=== PATIENT | male | born 1945 | race Caucasian/White ===

== ENCOUNTER 2018-06-24 21:27 | Inpatient (IN) | payer MEDICARE ==
[~2018-06-24 21:27] MED LIST: ISOVUE-370 76%-LOCM 1 ML ONE
[2018-06-24 21:43] LABS: #Lymphocytes 1.2 thou/uL (1.20-3.40); #Monocytes 1.1 thou/uL (0.11-0.59); #Neutrophils 16.1 thou/uL (1.40-6.50); %Basophils 0.1 % (0.0-1.0); %Eosinophils 0.2 % (0.0-10.0); %Lymphocytes 6.5 % (21.0-51.0); %Neutrophils 87.2 % (42.0-75.0); Hemoglobin 17.2 g/dL (14.0-18.0); Mean Corpuscular HGB CONC 33.1 g/dL (32.0-36.0); Mean Corpuscular Hemoglobin 36.1 pg (27.0-31.0); Mean Platelet Volume 8.9 fL (7.4-10.4); Platelet Count 139 thou/uL (130-400); Red Blood Cell (RBC) Count 4.76 mill/uL (4.70-6.10); White Blood Cell (WBC) Count 18.5 thou/uL (4.8-10.8)
[2018-06-24 21:50] LABS: INR-International Normal Ratio 1.2; PTT 31.2 SEC (22.9-36.1); Prothrombin Time 15.2 SEC (12.0-14.7)
[2018-06-24 21:52] LABS: Bilirubin Moderate (Negative); Blood, Urine Large (Negative); Clarity CLOUDY (Clear); Glucose, Urine (Dipstick) Negative (Negative); Leukocyte Small (Negative); Nitrite Positive (Negative); Protein, Urine (Dipstick) 100 mg/dL (Neg-Trace); Specific Gravity, Urine 1.026 (1.002-1.036); pH, Urine 5.5 (5.0-9.0)
[2018-06-24 21:54] LABS: Bacteria/HPF None Seen HPF (None Seen); RBC/HPF 0-3 HPF (0-3)
[2018-06-24 21:54] LABS: ALT (SGPT) 65 U/L (8-55); AST (SGOT) 185 U/L (5-34); Alcohol Less than 10 mg/dL (Less than 10); Alkaline Phosphatase 79 U/L (40-150); Anion Gap 18 mmol/L (10-20); BUN (Urea Nitrogen) 35 mg/dL (8.4-25.7); Bilirubin, Total 1.6 mg/dL (0.2-1.2); CK (CPK) 3836 U/L (30-200); Calc. Creatinine Clearance 0 mL/min (70-130); Calcium 9.5 mg/dL (7.8-10.44); Carbon Dioxide 27 mmol/L (23-31); Chloride 101 mmol/L (98-107); Estimated GFR-MDRD 38; Globulin 4.1 g/dL (2.4-3.5); Glucose 191 mg/dL (83-110); Lipase 10 U/L (8-78); Potassium 5.2 mmol/L (3.5-5.1); Protein, Total 8.1 g/dL (5.8-8.1); Sodium 141 mmol/L (136-145)
[2018-06-24 21:56] LABS: Pathc Cast-AUWi Flag 22.82 (0-2.49)
[2018-06-24 22:03] LABS: Hyaline Casts/LPF >50 HYALINE CAST LPF (0-3 Hyaline)
[2018-06-24] MEDS ORDERED: Fentanyl 100 MCG/2 ML VIAL ONE ×3 (22:04→22:43)
--- NOTE | 2018-06-24 22:09 | RAD ---
ONE VIEW CHEST 06/24/18 HISTORY: GI bleed. COMPARISON: 12/01/09. FINDINGS: Endotracheal tube terminates at the level of the clavicles. Nasogastric tube is only partially identi fied. Dedicated abdomen radiograph is recommended to assess the termination of a nasogastric tube. No rmal cardiac silhouette. Pulmonary vessels and hilum are normal. Costophrenic angles are clear. No co nsolidation or mass. No pneumothorax or osseous abnormalities. IMPRESSION: Normal cardiac silhouette for supine projection. Nasogastric tube as above. Dedicated abdomen radiogr aph can be performed. No pneumothorax on this supine projection. POS: [facility]
[2018-06-24] MEDS ORDERED: fentaNYL Citrate/PF 2,000 MCG in Sodium Chloride 0.9% 60 ML IV SCH (22:17)
--- NOTE | 2018-06-24 22:19 | CT ---
CT CERVICAL SPINE WITHOUT CONTRAST 06/24/18 HISTORY: Level I trauma. COMPARISON: 11/04/09. TECHNIQUE: CT cervical spine is performed without contrast. Reformatted images are submitted. Intracranial hemorrhage is noted. Refer to separate head CT report for further details. No craniocervical dissociation. Lateral masses of C1 and C2 as well as the facets have appropriate ar ticulation. Intact odontoid process. Stable fusion of the C5-C6 disc space. No malalignment. No preve rtebral soft tissue swelling. No epidural hematoma. Varying degrees of central canal stenosis and davide ral foraminal narrowing on the basis of degenerative change. Cervical spine vertebral body height is maintained. No cervical spine fracture. Upper mediastinum is unremarkable. Fibrotic changes in the visualized lung apices. IMPRESSION: No fracture. POS: [facility]
--- NOTE | 2018-06-24 22:26 | CT ---
HEAD CT WITHOUT CONTRAST: 06/24/18 HISTORY: Level I trauma. Depressed skull fracture on the right side. GI bleed. Unknown mechanism of injury. COMPARISON: 11/07/15. TECHNIQUE: Noncontrast head CT is performed from skull base to skull vertex. FINDINGS: There is adequate aeration of the mastoid air cells. There is right maxillary sinus mucosal disease. There is a right supraorbital/frontal, periorbital hematoma. Mild right sided exophthalmos cannot be excluded. Both ocular lenses are appropriately located. Intact calvarium. There is no evidence of a right calvarial fracture. There is a small amount of subarachnoid blood along the right temporal convexities. Small foci of int raparenchymal blood along the medial right frontal lobe is suspected. Small amounts of subarachnoid b lood may be present in the sulci along the right frontotemporal region. There is moderate amount of b lood in the occipital horn of both lateral ventricles. There is also increased density along the left thalamus suggesting a left thalamic hematoma/hemorrhage. The left thalamic component appears to be a pproximately 3.5 x 1.9 cm. There is no midline shift. Basilar cisterns appear to still be patent. Age appropriate atrophy. Chron ic small vessel ischemic change of the white matter identified. Subtle hyperdensity involving the medial right frontal lobe along the falx is nonspecific. IMPRESSION: 1. Subarachnoid and intraventricular hemorrhage. 2. Right periorbital and scalp hematoma. 3. Left thalamic hemorrhage/hematoma. POS: [facility]
--- NOTE | 2018-06-24 22:32 | CT ---
MAXILLOFACIAL CT WITHOUT CONTRAST 06/24/18 HISTORY: Trauma. COMPARISON: None. TECHNIQUE: Maxillofacial CT is performed without contrast. Reformatted images are submitted. There is a right supraorbital, periorbital hematoma. Right ocular lens is appropriately located. Both globes are intact. Retrobulbar fat is preserved. Symmetric attenuation of the optic nerves and ocula r rectus muscles. Mild right sided exophthalmos is noted. Sagittal reformatted images demonstrate davina ropriate alignment of the mandibular condyles. There is evidence of periodontal disease with periapic al lucencies and dental caries. Maxilla is unremarkable. Coronal reformatted images demonstrate soft tissue attenuation of the right osteomeatal complex. Left osteomeatal complex is patent. The osseous margins of the sinuses and orbits are maintained. Zygomat ic arches are intact. Pterygoid plates are intact. There is evidence of an endotracheal and nasogastric tube limiting evaluation of the oral cavity. Sym metric attenuation of the visualized parotid and submandibular glands. Atherosclerosis of the right c arotid artery is noted. There is mild mucosal disease involving bilateral ethmoid air cells. Small air fluid level in the rig ht maxillary sinus. Adequate mastoid air cell aeration. IMPRESSION: 1. No evidence of a maxillofacial fracture. 2. Extensive periodontal disease. 3. Right periorbital/supraorbital hematoma. Mild right sided exophthalmos. Results of the head CT, cervical spine CT, face CT discussed with Dr. Pennington, at 10:08 p. m. Code CR POS: P[facility]
[2018-06-24 22:40] LABS: Base Excess (BEa) 0.9 mEq/L (-2.0 to +3.0); CO2 Tension 43.2 mmHg (35.0-45.0)
[2018-06-24 22:41] LABS: Analyzer IN Cardio ER; Calcium, Ionized 1.1 mmol/L (1.12-1.30); Carboxyhemoglobin (COHb) 0.2 gm% (0.0-3.0); Hemoglobin (Hb) 15.4 g/dL (14.0-18.0); Potassium - ABG Lab 3.3 mmol/L (3.70-5.30)
[2018-06-24 22:42] LABS: Puncture Site RRA
--- NOTE | 2018-06-24 23:03 | CT ---
CT CHEST WITH CONTRAST CT ABDOMEN WITH CONTRAST CT PELVIS WITH CONTRAST LIMITED CT LUMBOSACRAL SPINE WITH CONTRAST LIMITED CT THORACIC SPINE WITH CONTRAST 06/24/18 HISTORY: Skull fracture. Found down. COMPARISON: None. FINDINGS: There are numerous air space opacities in the right upper lobe concerning for multifocal infection. P atient is intubated. Enteric tube is in place. Tip of the gastric body. No significant mediastinal adenopathy. There are multiple healing right sided rib fractures. Motion artifact limits evaluation for lower rib fractures. The sternum and manubrium are intact. There is a compression fracture at L1 with retropulsion approximately 2 mm. This is not definitively acute. The clavicles are intact. The visualized portion of the scapula are intact. Osseous pelvis is intact. Old left humeral neck fracture. The liver contour is nodular suggesting cirrhosis. Spleen is unremarkable as well as the pancreas. Th ere is cholelithiasis. Soft tissue contusion is present over the right thigh. Underlying right femur is intact. The osseous pelvis is intact. No lumbar spine transverse process fracture. Adrenal glands are unremarkable. No hy dronephrosis. No dilated loops of large or small bowel. There appears to be a soft tissue contusion o jordan the left anterior abdominal wall. There is a small bowel containing ventral hernia without eviden ce of obstruction. Moderate diverticular disease of the sigmoid colon without active current inflammation. The appendix is visualized and is normal. No free intraperitoneal gas or fluid. IMPRESSION: 1. L1 compression fracture with retropulsion does not appear to be acute. 2. Old right sided rib fractures. 3. Old left humeral neck fracture. 4. Right upper lobe air space opacity concerning for multifocal infection. 5. Nodular contour of the liver suggesting cirrhosis. 6. Small bowel containing ventral/umbilical hernia without evidence obstruction. 7. Soft tissue contusions left anterior abdominal wall and right lateral thigh. Dr. Gorge Unger, 10:12 p.m. POS: [facility]
[2018-06-24] MEDS ORDERED: Insulin Regular 300 UNITS/3 ML VIAL ONE (23:12)
[2018-06-24] MEDS ORDERED: Calcium Chloride 1 GM/10 ML Abboject SYRINGE ONE (23:12)
[2018-06-24] MEDS ORDERED: Dextrose 50% Abboject 50 ML SYRINGE ONE (23:12)
[2018-06-24] MEDS ORDERED: Azithromycin 500 MG VIAL ONE (23:16)
[2018-06-24] MEDS ORDERED: Magnesium Sulfate 2 GM in Sodium Chloride 0.9% 100 ML IVPB SCH (23:30)
[2018-06-24] MEDS ORDERED: Promethazine HCl 25 MG/ML VIAL IM PRN (23:50)
[2018-06-24] MEDS ORDERED: Ondansetron HCl/PF 4 MG/2 ML Vial IVP PRN (23:50)
[2018-06-24] MEDS ORDERED: Promethazine 25 MG TAB PO PRN (23:50)
[2018-06-24] MEDS ORDERED: Zolpidem Tartrate 5 MG TAB PO PRN (23:50)
[2018-06-24] MEDS ORDERED: HYDROcodone/Acetaminophen 7.5/325 mg Tablet PO PRN ×2 (23:50)
[2018-06-24] MEDS ORDERED: Mag-Al 1200 mg/1200 mg/30 ML UDCUP PO PRN (23:50)
[2018-06-24] MEDS ORDERED: diphenhydrAMINE 50 MG CAP PO PRN (23:50)
[2018-06-24] MEDS ORDERED: Labetalol HCl 100 MG/20 ML VIAL SLOW IVP PRN (23:50)
[2018-06-24] MEDS ORDERED: Docusate 100 MG CAP PO PRN (23:50)
[2018-06-24] MEDS ORDERED: Milk Of Magnesia 30 ML UDCUP PO PRN (23:50)
[2018-06-24] MEDS ORDERED: Bisacodyl 10 MG SUPP PR PRN (23:50)
[2018-06-25] MEDS ORDERED: Norepinephrine 8 MG/0.9% NS 250 ML ONE (00:19)
[2018-06-25] MEDS ORDERED: cefTRIAXone\\ROCEPHIN 2 GM VIAL ONE (00:19)
--- NOTE | 2018-06-25 01:32 | HP ---
HISTORY OF PRESENT ILLNESS: This is a 73-year-old male who was found down/ unresponsive at his home by his family this evening. EMS was called and he was brought to our emergency room. The last normal for this patient was Thursday by family. They state that he more or less takes care of himself. He lives on his own. He had an ischemic stroke approximately 2 years ago, which left him with some deficits, but he was able to walk slow but unassisted and take care of himself. Family and EMS do not know how long the patient was down for. The patient has a depressed skull fracture on the right side. He was found covered in dried blood with multiple bruises all over his body. The patient was intubated en route. I am seeing Mr. Farfan in the ER. He is intubated. He has a right swollen frontotemporal area surrounding his eye. The swelling prevents the right eye from opening. The patient is a little bit responsive. He was able to move all 4 extremities with encouragement. I believe that he was responding to commands, squeezing my fingers with the left hand, and moving the other extremities. He is able to withdraw all 4 extremities, even the right leg. Family states that the right side was always less responsive following his stroke 2 years ago. REVIEW OF SYSTEMS: Unable to obtain review of systems. PAST MEDICAL HISTORY: Includes a stroke in 2015, diabetes type 2, hypertension , pulmonary disease, COPD. Medical history is obtained from family and medical records. PAST SURGICAL HISTORY: Left arm skin graft. Medical history obtained from chart. SOCIAL HISTORY: Social history is obtained from family and medical chart. The patient denies alcohol use. Denies drug use. The patient is a former smoker, quit in 2014 following his ischemic stroke. The patient used to smoke 2 packs of cigarettes daily. The patient currently lives in his home alone. MEDICATIONS: Aspirin 325 mg, lisinopril 20 mg, Levemir 26 units, metoprolol 25 b.i.d., atorvastatin 40 b.i.d. ALLERGIES: No known drug allergies. PHYSICAL EXAMINATION: VITAL SIGNS: Blood pressure 91/67, heart rate 99, respiratory rate 14, temperature 97.2, O2 sats 99% on ventilator. Pain, unable to obtain. CONSTITUTIONAL: The patient is tachycardic. Blood pressure is hypotensive. NEUROLOGIC: The patient appears toxic, poorly groomed, foul odor, and is on a ventilator. The patient is a little responsive. HEAD: The patient has this depression on right side of scalp. Right-sided facial swelling. Dried blood on his face. EYES: Eye exam is difficult. Right eye is swollen and shut. Left pupil is 2 mm and sluggish reactivity. The patient does have control of left eye to some extent. Extraocular movements are intact on the left. RESPIRATORY: The patient is currently intubated. CARDIOVASCULAR: Tachycardic. Normal heart sounds. NEUROLOGIC: Butler Coma Scale: The patient is unable to open his eye, 1; the patient is nonverbal, 1; the patient is able to respond to commands with motor activity, 6. The patient will respond to some questions, was able to squeeze lightly with left hand, did wiggle and move both lower extremities and the right extremity on command, however slow. The patient is withdrawing from stimuli in all 4 extremities. IMAGING: CT brain shows a subarachnoid and intraventricular hemorrhage, right periorbital and scalp hematoma, and left thalamic hemorrhage/hematoma. CT abdomen: There appears to be an old L1 compression fracture, old rib fractures , and old left humeral neck fracture. There is a right lobe opacity concerning of pneumonia. ASSESSMENT AND PLAN: From a neurosurgical standpoint, the patient has subarachnoid hemorrhage and bilateral ventricular hemorrhages, which at this time is nonsurgical. We will monitor pt.get a repeat CT scan in the morning. We will do neuro checks every 2 hours. Maintain blood pressure systolic below 160. We have consulted the Hospitalist Department to treat his other medical issues including pneumonia and hypotension. This is a survivable bleed; however , it is likely that this patient will have some significant deficits upon recovery. ANTHONY
[2018-06-25] MEDS ORDERED: Norepinephrine 8 MG/250 ML BAG IVPB PRN (01:55)
[2018-06-25] MEDS ORDERED: Propofol BOLUS 1,000 MG/100 ML VIAL IV PRN (01:56)
[2018-06-25] MEDS ORDERED: Fentanyl BOLUS 250 ML IVPB PRN (01:56)
[2018-06-25] MEDS ORDERED: Lorazepam 2 MG/ML VIAL SLOW IVP PRN (01:56)
[2018-06-25] MEDS ORDERED: Propofol 1,000 MG/100 ML VIAL IV PRN (01:56)
[2018-06-25] MEDS ORDERED: DISCONTINUE PREVIOUS NARCOTIC PAIN MEDICATIONS AND BENZODIAZEPINES FS SCH (01:56)
[2018-06-25 02:31] LABS: Lactic Acid 2.3 mmol/L (0.5-2.2)
[2018-06-25] MEDS: Sodium Chloride 0.9% 1,000 ML IV SCH ×2 (02:35→13:25)
[2018-06-25] MEDS: Diltiazem HCl 125 MG, Admixture Fee 1 EACH in Sodium Chloride 0.9% 100 ML IVPB SCH (03:13)
[2018-06-25 03:53] LABS: Anion Gap 14 mmol/L (10-20); BUN (Urea Nitrogen) 31 mg/dL (8.4-25.7); Calc. Creatinine Clearance 77 mL/min (70-130); Calcium 8.9 mg/dL (7.8-10.44); Carbon Dioxide 25 mmol/L (23-31); Chloride 109 mmol/L (98-107); Estimated GFR-MDRD 64; Glucose 152 mg/dL (83-110); Potassium 3.4 mmol/L (3.5-5.1); Sodium 145 mmol/L (136-145)
[2018-06-25] MEDS ORDERED: Dextrose 50% Abboject 50 ML SYRINGE SLOW IVP PRN (04:22)
[2018-06-25] MEDS ORDERED: Dextrose 5% in Water 1,000 ML IV PRN (04:22)
--- NOTE | 2018-06-25 04:43 | PDOC.EVN ---
Event Note - Event Note Event Note: consult # [id number]
[2018-06-25 05:40] LABS: Troponin I 9.477 ng/mL (< 0.028)
--- NOTE | 2018-06-25 07:38 | PRG ---
DATE OF SERVICE: 06/25/2018 Mr. Chace Farfan was found down in his home yesterday and brought to our emergency department. Last time he was known to be normal was Thursday of this week. A CT examination of the brain revealed intr acerebral hemorrhage, involving the posterior portion of the left thalamus. There is intraventricula r extension and there is some traumatic subarachnoid hemorrhage over the convexities and between the hemispheres. Mr. Farfan had a dense right hemiplegia and aphasia on admission. He was intubated and he has been treated for rhabdomyolysis and some orthopedic injuries in addition to the brain hemorrhage. This morning, a CT scan has been repeated and there is absolutely no change. Overnight, Mr. Farfan has been on pressors. His blood pressure is supported, but it is in the 90s. Currently, he is on a drip of fentanyl for sedation and pain control. On examination, Mr. Farfan opens the left eye to stimulus. He attempts to follow commands, but cannot interpret them accuratel y. He tries to mimic with his left hand. The right side is not moving at all. Mr. Farfan's neurological examination is as I predicted it would be this morning. It is unlikely t hat Mr. Farfan returns to normal neurological function after this. However, this hemorrhage is not going to be life threatening, but rather debilitating. He has already made it through the riskiest portion of the intracerebral hemorrhage, in my view. If this happened earlier in the week and the or an is essentially stable now, then we will start having to think about rehabilitation from his new ne urological deficits. He might require a PEG and trach to make it to a brain injury rehabilitation fa cility eventually. This will be discussed with the family later today. The likelihood of neurosurgical intervention is low.
[2018-06-25 07:46] LABS: Actual Bicarbonate (HCO3a) 24.9 mEq/L (22-28); Base Excess (BEa) -0.8 mEq/L (-2.0 to +3.0); CO2 Tension 44.8 mmHg (35.0-45.0); Hemoglobin (Hb) 15.2 g/dL (14.0-18.0); O2 Tension (PaO2) 97.7 mmHg (> 70.0); pH, Arterial 7.36 (7.35-7.45)
[2018-06-25 07:47] LABS: Calcium, Ionized 1.2 mmol/L (1.12-1.30); Carboxyhemoglobin (COHb) 1.1 gm% (0.0-3.0); Potassium - ABG Lab 3.7 mmol/L (3.70-5.30); Puncture Site RRA
--- NOTE | 2018-06-25 07:56 | CON ---
DATE OF CONSULTATION: 06/25/2018 PRIMARY CARE PHYSICIAN: Sonja Betancur M.D. REASON FOR CONSULTATION: Medical management. HISTORY OF PRESENT ILLNESS: This is a 73-year-old male with a prior history of ischemic stroke in 2014, type 2 diabetes, hypertension, COPD, who was found down and unresponsive at home by his family earlier in the evening. EMS was called. He is currently intubated and nonresponsive. His son is with him at bedside. The patient's last known normal was on Thursday at baseline, he takes care of himself with independence. At the time of my evaluation, the patient is currently unable to provide a history and so the entirety of this history is obtained from prior records. REVIEW OF SYSTEMS: Unable to obtain secondary to the above. PAST MEDICAL HISTORY: As per HPI. PAST SURGICAL HISTORY: Status post left arm skin graft. SOCIAL HISTORY: The patient has a prior history of tobacco and alcohol use for which he quit in 2014 after his ischemic stroke. He has a prior history of 2 packs per day. He has no illicit drug use. He has one son with him at bedside. He states that the patient has 3 children, all sons, who would together be his medical decision makers. The son at bedside does state that the patient used to have a prior living will signed. At this point in time, the patient would want aggressive treatment, but if he were to further decompensate and require compressions and shocks, patient's son feels that the patient would have wanted to be a DO NOT RESUSCITATE/ do not code. That being said, if there are any further procedures, surgical procedures or neurosurgical procedures that may benefit the patient, he would certainly want to undergo those procedures. HOME MEDICATIONS: Please see the EMR for full details. The patient's list currently appears to include nicotine 21 mg topical patch q.24 hours, multivitamin with minerals 1 tab p.o. daily, metoprolol tartrate 12.5 mg p.o. b.i.d., Levemir FlexPen 20 units subcu at bedtime, atorvastatin 40 mg p.o. at bedtime and aspirin 325 mg p.o. daily. ALLERGIES: Include TETANUS VACCINES, which cause hives. FAMILY HISTORY: Significant for multiple family members with diabetes and a father who of emphysema. PHYSICAL EXAMINATION: GENERAL: The patient is intubated currently, non-participatory. HEENT: The patient is currently in a C-collar. He has an ET tube in place. He does have some ecchymoses and erythema over the right side of his face. CARDIOVASCULAR: S1, S2. Pulses 2+ bilateral upper extremities. No pitting pedal edema. RESPIRATORY: Prominent ventilator sounds, bilateral lung roa. ABDOMEN: Positive bowel sounds and soft. MUSCULOSKELETAL: Noted areas of erythema along his right knee, right side and right head as described above. LABORATORY DATA AND IMAGING: WBC 18.5, hemoglobin 17.2, hematocrit 51.9, platelets 139. PT 15.2, INR 1.2, aPTT 31.2. ABG demonstrates a pH of 7.4, pCO2 of 43.2, pO2 of 428. Sodium 141, potassium 5.2, chloride of 101, bicarbonate of 27, BUN 35, creatinine 1.77, glucose 191. Lactic acid of 3.5, calcium 9.5, total bilirubin 1.5, AST 185, ALT 165, alkaline phosphatase 79. CK of 3836, total protein 8.1, albumin 4.0, lipase of 10. UA is significant for 100 of protein, 40 of ketones, large blood, positive nitrite, moderate bilirubin, small leukoesterase, 7-10 wbc's, 11-20 squamous epithelial cells, greater than 50 hyaline casts. Plasma alcohol is less than 10. On 06/24/2018, CT of the chest, abdomen, and pelvis. Impression: "L1 compression fracture with retropulsion does not appear to be acute. Old right-sided rib fractures. Old left humeral neck fracture. Right upper lobe airspace opacity concerning for multifocal infection. Nodular contour of the liver suggesting cirrhosis. Small bowel containing ventral/umbilical hernia without evidence of obstruction. Small vessel contusions, left anterior abdominal wall and left lateral thigh." On 06/24/2018, chest x-ray. Impression: "Normal cardiac silhouette for supine projection. Nasogastric tube as above. Dedicated abdomen radiograph can be performed. No pneumothorax in the supine projection. " On 06/24/2018, brain CT. Impression: "Subarachnoid and intraventricular hemorrhage. Right periorbital and scalp hematoma, left thalamic hemorrhage/ hematoma." On 06/24/2018, cervical spine CT. Impression: "No fracture." On 06/24/2018, facial bones CT. Impression: "No evidence of a maxillofacial fracture. Extensive periodontal disease. Right periorbital, supraorbital hematoma. Mild right-sided exophthalmos." ASSESSMENT AND PLAN: This is a 73-year-old male, who presented after being found down. 1. Neurological. Significant for multiple hematomas, including a subarachnoid hemorrhage as well. The patient is currently on Neurosurgical Service. We will have a repeat brain CT in the morning. Close monitoring of the patient's neurological status is currently warranted. 2. Pulmonary. The patient is currently on ventilator. Pulmonary Medicine is currently consulted. There is concern for the possibility of a right upper lobe opacity consistent with a pneumonia. The patient is empirically placed on ceftriaxone and azithromycin. 3. Cardiovascular. The patient was noted to have atrial fibrillation with RVR subsequently while in the ICU. The patient is currently rate controlled on diltiazem. Serial troponins, TSH, EKG in the morning, echocardiogram in the morning. I appreciate Cardiology consultation. Close monitoring of the patient 's blood pressure. The patient currently on Levophed for hypotension. The patient is also currently a poor candidate for any further anticoagulation for secondary prevention with his atrial fibrillation. 4. Gastrointestinal. We would recommend GI prophylaxis for this patient with Pepcid. The patient is a known diabetic. We will closely monitor his blood sugars. 5. Genitourinary. The patient has a UA concerning for possible urinary tract infection. Empiric antibiotics as above for a community-acquired pneumonia would certainly cover empirically for a urinary tract infection. Check a urine culture as well. The patient with a component of acute kidney injury, suspect prerenal in etiology. The patient is currently receiving IV fluids. Recheck a BMP in the morning. If continued acute renal insufficiency, we would recommend a low threshold for obtaining Nephrology consultation and also checking urine electrolytes and a renal ultrasound. Otherwise, continue strict intake and output. 6. Musculoskeletal. The patient was "found down." Recheck a CK in the morning. Continue with IV hydration. 7. Electrolytes with hyperkalemia. Continue to closely monitor the patient's potassium. The patient is also currently on telemetry. 8. Diet: The patient is currently n.p.o. If anticipated, continued ventilator support required to consider tube feeds. 9. Deep venous thrombosis prophylaxis with sequentials. 10. Code status: I have discussed code status with the patient's son at bedside and the patient is currently a DO NOT RESUSCITATE. Greater than 30 minutes critical care time spent caring for the patient in consultation. ROND
--- NOTE | 2018-06-25 08:23 | RAD ---
LEFT KNEE 4 VIEWS: HISTORY: Fall, left knee pain and swelling. FINDINGS/IMPRESSION: No acute fracture or dislocation is identified. No joint effusion is seen. POS: [facility]
--- NOTE | 2018-06-25 08:33 | RAD ---
LEFT HUMERUS 2 VIEWS: HISTORY: A 73-year-old male with a history of left arm erythema with injury from a possible fall. FINDINGS: Healed proximal left humeral fracture. No acute fracture or dislocation. IMPRESSION: Proximal left humeral deformity, evidence for a healed fracture. No acute fracture or dislocation. POS: [facility]
--- NOTE | 2018-06-25 08:37 | RAD ---
RIGHT ELBOW 3 VIEWS: HISTORY: Fall, erythema, swelling. FINDINGS: There is a nondisplaced fracture involving the medial humeral condyle. CODE T POS: [id number]
--- NOTE | 2018-06-25 08:55 | CT ---
PRELIMINARY REPORT/[facility]/EMERGENCY AFTER HOURS PROCEDURE: Addendum created by Christelle Romano MD on 06/25/2018 4:48 AM Central Time ([place] & [place]) THIS REPORT CONTAI NS FINDINGS THAT MAY BE CRITICAL TO PATIENT CARE. The findings were verbally communicated via telepho ne conference with Irina Styles at 4:48 AM CDT on 06/25/2018. The findings were acknowledged and understood. Initial Report created on 06/25/2018 4:36 AM Central Time ([place] & [place]) EXAM: CT Head Without Intravenous Contrast EXAM DATE/TIME: 06/25/2018 3:37 AM CLINICAL HISTORY: 73 years old, male; Injury or trauma; Fall; Follow-up exam; Abrasion; Not specified; Patient HX: F/u sdh TECHNIQUE: Axial computed tomography images of the head/brain without intravenous contrast. COMPARISON: CT Brain WO Con 06/24/2018 9:49 PM FINDINGS: Brain: A large hemorrhagic area measuring 3.7 x 2.2 cm in the left thalamus is stable since the prior study. Mild parenchymal hemorrhage in both frontal lobes on both sides of the falx are stable since the prior study. Moderate hemorrhage layering in the sulci in the right frontal lobe is stable since the prior study and mildly worse in the right parietal lobe. Moderate chronic microvascular ischemic changes are noted in the periventricular areas. Mild diffuse cerebral atrophy is seen. Mild midline shift to the right measuring 2.5 mm is seen. Ventricles: Moderate layering intraventricular hemorrhage in the posterior horns of both lateral vent ricles are stable since the prior study. Bones/joints: Normal. No acute fracture. Sinuses: An air-fluid level in the right maxillary sinus can be seen with acute sinusitis. Moderate m ucosal thickening is seen in the ethmoid air cells. Mastoid air cells: Normal as visualized. No mastoid effusion. Soft tissues: Moderate soft tissue thickening measuring 1 cm is seen in the right parietal soft tissu es. Moderate periorbital soft tissue thickening is noted on the right, stable. Vasculature: Vertebral artery calcifications are seen. IMPRESSION: 1. Large hemorrhagic area in the left thalamus is stable since the prior study. Mild parenchymal hemo rrhage in both frontal lobes on both sides of the falx are stable since the prior study. Mild midline shift to the right measuring 2.5 mm stable. 2. Moderate hemorrhage layering in the sulci in the right frontal lobe is stable since the prior stud y and mildly worse in the right parietal lobe. 3. Moderate chronic microvascular ischemic changes with mild diffuse cerebral atrophy. 4. Air-fluid level in the right maxillary sinus can be seen with acute sinusitis. 5. Moderate mucosal thickening in the ethmoid air cells. 6. Moderate soft tissue thickening in the right parietal soft tissues. Moderate periorbital soft tiss ue thickening on the right, stable. Thank you for allowing us to participate in the care of your patient. Dictated and Authenticated by: Christelle Romano MD 06/25/2018 4:36 AM Central Time ([place] & [place]) FINAL REPORT BRAIN CT WITHOUT IV CONTRAST: EMERGENCY AFTER HOURS EXAM TIME: 3:38 a.m. DATE: 06/25/18. FINDINGS: Again noted are extensive intraparenchymal and intraventricular and subarachnoid hemorrhagic changes along with severe atrophy and chronic white matter ischemic change. Right periorbital soft tissue sw elling. Little change from the prior study of 06/24/18. Continue short-term followup. POS: [facility]
[2018-06-25] MEDS: Multivitamin W/ Minerals 1 TAB PO SCH (08:59)
[2018-06-25] MEDS: Famotidine/PF 20 mg/2ml Vial SLOW IVP SCH (08:59)
[2018-06-25] MEDS: HumaLOG 300 UNITS/3 ML VIAL SC PRN ×2 (08:59→11:58)
[2018-06-25] MEDS ORDERED: Prevnar 13-Val Conj/PF 0.5 ML SYRINGE IM ONE (09:00)
--- NOTE | 2018-06-25 09:17 | CON ---
DATE OF CONSULTATION: 06/25/2018 HISTORY: He is a 73-year-old gentleman, he had 2 sons at the bedside who gave adequate history. The y state that he was found down at home when his son visited him yesterday. The last colonization was on Thursday. One of the elder sons did visit him over the weekend, he was very appropriate. PAST MEDICAL HISTORY: The patient sees a Dr. Sonja Betancur in [place]. He carries a diagnosis of a previous CVA, hypertension, alcohol abuse and diabetes. He also smokes. PAST SURGICAL HISTORY: Skin graft. SOCIAL HISTORY: He is a 2 pack a day smoker, it is unclear whether he is still smoking. Her son said he does have a previous history of alcoholism, he is alcoholic, but he has refrained fro m drinking for a period of time. He was in the hospital 2 years ago when he had a CVA, went to the rehab and apparently was doing well . Pretty much got most of his defect resolved. HOME MEDICATIONS: Presumably includes Lopressor 12.5, insulin, Lipitor, aspirin. ALLERGIES: None known. SOCIAL HISTORY: Unremarkable. REVIEW OF SYSTEMS: Unobtainable. MEDICATIONS: He is on Fentanyl 100 mcg, he is on Cardizem 5, Levophed at 10. PHYSICAL EXAMINATION: VITAL SIGNS: Pulse is 86, blood pressure 97/57, sats 90%, respiration and 10. NEURO: Neurologically, he opens his eyes. HEENT: Pupils are equal. He moves the left side. Upgoing toes. CHEST: Chest revealed no wheezing or crackles. CARDIAC: Normal S1, S2. No gallops. ABDOMEN: Soft, no masses. LABORATORY: PO2 is 97, pCO2 44.36. Electrolytes are normal. Troponin is elevated 9.40. Lactic aci d normal. Glucose 152. CT of the head on an emergency basis showed a subarachnoid hemorrhage, intraventricular hemorrhage, r ight periorbital scalp hematoma, left thalamic hemorrhage. He had CT imaging of his chest, abdomen and pelvis that showed surprisingly old right-sided rib fract ures, old left humerus neck fracture. Findings; the liver is consistent with cirrhosis. His chest x-ray pretty much showed adequate placement. He has bilateral airspace disease. Upper lob e with a small right-sided pleural effusion. Otherwise, negative. IMPRESSION: 1. Status post subarachnoid intracerebral hemorrhage. 2. Diabetes. 3. Hypertension. 4. Tobacco abuse. PLAN: From a pulmonary standpoint of view, continue vent support, minimize sedation. Supportive car e and PT. We will follow while in the ICU. Forty-five minutes critical care time.
[2018-06-25 14:14] LABS: Critical Call Chem Troponin I RESULT DECREASING; Troponin I 6.241 ng/mL (< 0.028)
--- NOTE | 2018-06-25 15:17 | EKG ---
Test Reason : Blood Pressure : / mmHG Vent. Rate : 117 BPM Atrial Rate : 125 BPM P-R Int : 000 ms QRS Dur : 090 ms QT Int : 376 ms P-R-T Axes : 000 053 237 degrees QTc Int : 524 ms Atrial fibrillation with rapid ventricular response Marked T wave abnormality, consider anterolateral ischemia Prolonged QT Abnormal ECG Confirmed by NUSRAT FRAZIER MD ([id number]) on 06/25/2018 3:16:56 PM Referred By: DILLAN Confirmed By:NUSRAT FRAZIER MD
[2018-06-25] MEDS ORDERED: Digoxin 0.5 MG/2 ML AMP SLOW IVP SCH (19:00)
[2018-06-25] MEDS: Atorvastatin Calcium 40 MG TAB PO SCH (20:49)
[2018-06-25] MEDS ORDERED: Non-Formulary Item 1 EACH (Levemir Flexpen [Levemir Flexpen] 20 UNITS) SC SCH (21:00)
[2018-06-25] MEDS: Insulin Glargine 20 UNITS in Pre-Filled Syringe 1 EACH SC SCH (21:09)
[2018-06-25] MEDS ORDERED: cefTRIAXone\\ROCEPHIN 1 GM in Sodium Chloride 0.9% 100 ML IVPB SCH (22:00)
[2018-06-25 22:20] LABS: Critical Call Chem Troponin I RESULT DECREASING; Troponin I 4.774 ng/mL (< 0.028)
--- NOTE | 2018-06-25 22:51 | CON ---
DATE OF CONSULTATION: 06/25/2018 CONSULTING PHYSICIAN: Dr. Rome Jacob. HISTORY OF PRESENT ILLNESS: Mr. Farfan is a 73-year-old male with prior history of stroke, type 2 diabetic, hypertension, COPD. He was found down unresponsive his home. EMS called and is intubated, unresponsive. The patient' s family is not at bedside, all the history has been gotten from previous records. PAST MEDICAL HISTORY: As per HPI. PAST SURGICAL HISTORY: Left arm skin graft. MEDICATIONS: Please see full home list. ALLERGIES: TETANUS causing hives. SOCIAL HISTORY: History of alcohol and tobacco. The patient lives independently. The patient has a DO NOT RESUSCITATE order. REVIEW OF SYSTEMS: Noncontributory. PHYSICAL EXAMINATION: GENERAL: A 73-year-old male, intubated, not responding to questioning. EXTREMITIES: patient's right upper extremity. Exam of the patient's elbow is stable varus and valgus, has got full range of motion, no effusion, ecchymosis posterior. No open wounds. He has noted tenderness or crepitus. Palpation medial malleolus, medial epicondyle. He got 2+ pulse and soft compartments. Radiographic views of his right arm show a nondisplaced medial epicondyle fracture. X-rays of his left shoulder and this only showed a healed proximal humerus fracture. IMPRESSION: 1. Right acute medial epicondyle fracture. 2. History of a left proximal humerus fracture treated non-operatively. ASSESSMENT AND PLAN: The patient will be treated nonoperatively for his medial epicondyle fracture. Currently, as he is intubated and not responding. The patient will be in restrained. He will remain in restraints, keep him from extubating itself. When the patient is more alert, he can be placed in a sling. I would not place him in a splint for this injury, so would not want to cause more stiff arising pressure wounds or breakdown. Given his health, will continue to manage the patient nonoperatively. Since patient likely per hospital reports, patient will just need some tertiary follow up in about 4-6 weeks for repeat x-ray to ensure there has been no change. Please call with any questions. ANTHONY
[2018-06-25] MEDS ORDERED: Azithromycin 500 MG in Sodium Chloride 0.9% 250 ML 250 ML IVPB SCH (23:00)
[2018-06-25] MEDS: Acetaminophen 325 MG TAB PO PRN (23:30)
--- NOTE | 2018-06-26 00:31 | CON ---
DATE OF CONSULTATION: 06/25/2018 HISTORY: Chace Farfan is a 73-year-old white male with previous history of left parietal lobe deep matter infarct in 11/2015. He was found down and unresponsive at home, probably after about 4 days. He was intubated en route. CT scan showed subarachnoid and intraventricular hemorrhage. He also had been found to be in atrial fibrillation, which apparently is a new finding. The patient currently is intubated and minimally responsive. PAST MEDICAL HISTORY: Hypertension, diabetes, COPD, stroke as noted above. MEDICATIONS: Nicotine patch, metoprolol 12.5 mg b.i.d., aspirin 325 daily, Levemir FlexPen 20 units at bedtime, atorvastatin 40 at bedtime, multivitamin daily. ALLERGIES: TETANUS causes hives. OPERATIONS: Left arm skin graft. SOCIAL HISTORY: Smoked 2 packs per day, but stopped at the time of his previous stroke. PHYSICAL EXAMINATION: VITAL SIGNS: Blood pressure 114/72, pulse of 117, atrial fibrillation. HEENT: Facial trauma. CHEST: Clear. CARDIAC: S1 and S2 are normal, without any S3, S4 or murmurs. ABDOMEN: Positive bowel sounds. EXTREMITIES: Revealed no edema. NEUROLOGIC: Patient is minimally responsive. LABORATORY DATA: EKG revealed probable sinus rhythm with deep T-wave inversions anterolaterally. Echocardiogram revealed ejection fraction of 55-60% , moderate left atrial enlargement, moderate mitral regurgitation, mitral annular calcification, mild tricuspid regurgitation. Hemoglobin 17.2, hematocrit 51.9, white count 18,500, platelets 139,000. INR 1.2, pH 7.36, pCO2 is 44.8, pO2 is 97.7, troponin I of 9.477. Sodium 145, potassium 3.4, chloride 107, carbon dioxide 25, BUN 31, creatinine 1.13. Creatinine at the time of admission was 1.77. IMPRESSION: 1. Subarachnoid and intracerebral hemorrhage. 2. Atrial fibrillation with fast ventricular response. 3. Diabetes. 4. Hypertension. 5. Hypercholesterolemia. 6. Former smoker. 7. History of cerebrovascular accident. PLAN: Patient is currently on intravenous Cardizem and also has been on Levophed. At times, he is somewhat hypotensive, necessitating Levophed. The main objective will be to control the rate and I will give him a dose of digoxin at this time for better rate control. We will follow the patient with you. ANTHONY
[2018-06-26] MEDS: Diltiazem HCl 125 MG, Admixture Fee 1 EACH in Sodium Chloride 0.9% 100 ML IVPB SCH ×2 (01:58→13:49)
[2018-06-26] MEDS: Sodium Chloride 0.9% 1,000 ML IV SCH ×2 (02:18→18:54)
[2018-06-26 04:11] LABS: ALT (SGPT) 43 U/L (8-55); AST (SGOT) 74 U/L (5-34); Albumin 3.3 g/dL (3.4-4.8); Alkaline Phosphatase 83 U/L (40-150); Anion Gap 16 mmol/L (10-20); BUN (Urea Nitrogen) 24 mg/dL (8.4-25.7); Bilirubin, Total 1.5 mg/dL (0.2-1.2); CK (CPK) 933 U/L (30-200); Calc. Creatinine Clearance 99 mL/min (70-130); Calcium 8.7 mg/dL (7.8-10.44); Carbon Dioxide 24 mmol/L (23-31); Chloride 110 mmol/L (98-107); Estimated GFR-MDRD 86; Globulin 2.9 g/dL (2.4-3.5); Glucose 164 mg/dL (83-110); Potassium 3.8 mmol/L (3.5-5.1); Protein, Total 6.2 g/dL (5.8-8.1); Sodium 146 mmol/L (136-145)
[2018-06-26 05:50] LABS: Band 4 % (5-11); Hemoglobin 12.7 g/dL (14.0-18.0); Hypochromia SLIGHT = 6-15 cells (100X) (0-5/hpf); Lymphocytes 9 % (21-51); MDiff Complete? YES; Macrocytosis SLIGHT = 6-15 cells (100X) (0-5/hpf); Mean Corpuscular HGB CONC 35.7 g/dL (32.0-36.0); Mean Corpuscular Hemoglobin 39.2 pg (27.0-31.0); Mean Platelet Volume 8.1 fL (7.4-10.4); Monocytes 3 % (0-10); Neutrophil 84 % (42-75); PLT Morphology Comment Appears Decreased; Platelet Count 97 thou/uL (130-400); RBC Distribution Width 14.3 % (11.5-14.5); Red Blood Cell (RBC) Count 3.23 mill/uL (4.70-6.10); White Blood Cell (WBC) Count 9.9 thou/uL (4.8-10.8)
[2018-06-26 06:59] LABS: Actual Bicarbonate (HCO3a) 22.4 mEq/L (22-28); CO2 Tension 33.2 mmHg (35.0-45.0); Calcium, Ionized 1.1 mmol/L (1.12-1.30); Carboxyhemoglobin (COHb) 1.4 gm% (0.0-3.0); Hemoglobin (Hb) 12.9 g/dL (14.0-18.0); O2 Tension (PaO2) 63.5 mmHg (> 70.0); Potassium - ABG Lab 3.7 mmol/L (3.70-5.30); pH, Arterial 7.45 (7.35-7.45)
[2018-06-26 07:00] LABS: Puncture Site LRA
--- NOTE | 2018-06-26 08:12 | RAD ---
PORTABLE CHEST: HISTORY: CCU followup on ventilator. Respiratory distress. COMPARISON: 06/24/18. FINDINGS: Cardiomegaly with mild vascular congestion. Small effusions and bibasilar atelectasis or infiltrates . ET tube remains in place. POS: [facility]
[2018-06-26] MEDS: Cefepime 1 GM in Sodium Chloride 0.9% 100 ML IVPB SCH ×2 (09:33→20:20)
[2018-06-26] MEDS: Famotidine/PF 20 mg/2ml Vial SLOW IVP SCH (09:34)
[2018-06-26] MEDS: Multivitamin W/ Minerals 1 TAB PO SCH (09:34)
[2018-06-26] MEDS: Acetaminophen 325 MG TAB PO PRN ×3 (09:46→20:20)
[2018-06-26] MEDS ORDERED: Sodium Bicarbonate Tab 325 MG TAB PER TUBE PRN (13:10)
[2018-06-26] MEDS ORDERED: Pancrelipase DR 12000 1 CAP FS PRN (13:10)
--- NOTE | 2018-06-26 13:17 | PRG ---
DATE OF SERVICE: 06/26/2018 SUBJECTIVE: Mr. Chace Farfan is admitted to the ICU, intubated on the vent. X-ray shows worsening bilateral pleural effusion. Cardiomegaly. X-ray is worse compared to one admission. Not moving his right side. He is moving his left side. OBJECTIVE: NEURO: Neurologically, he is unresponsive. VITAL SIGNS: Pulse 91, blood pressure 111/63, sats 90%, and respirations 20. CHEST: Decreased breath sounds, bilateral rhonchi. CARDIAC: Normal S1, S2, no gallops or mass. LABORATORY DATA: White count 9000, H&H 12 and 35, platelet count 97, thrombocytopenic. PO2 is 63, p CO2 is . Electrolytes are normal. Troponin 4.7. Blood culture is growing coagulase negative S taph, probably contamination. IMPRESSION: 1. Respiratory failure secondary to intracerebral hemorrhage. subarachnoid hemorrhage. 2. Atrial fibrillation. 3. Diabetes. 4. Hypertension. 5. Abnormal x-ray. 6. Pneumonia. 7. Aspiration. PLAN: He is not weanable. Continue antibiotics, supportive care, and PT. We will discuss with family as they arrive. Prognosis is guarded. [id number] critical care time.
--- NOTE | 2018-06-26 14:43 | PDOC.PN ---
- Subjective Encounter Start Date: 06/26/18 Encounter Start Time: 14:42 Patient seen and examined. Son by bedside. Intubated on vent. Non verbal. Able to move left side of his body but not the right. - Objective Resuscitation Status: Resuscitation Status DNR:Do Not Resuscitate MAR Reviewed: Yes Vital Signs & Weight: Vital Signs (12 hours) Temp Pulse Resp BP 06/26/18 14:23 93 110/66 06/26/18 12:00 99.8 F H 06/26/18 10:45 80 101/57 L 06/26/18 10:00 21 H 06/26/18 08:00 28 H 06/26/18 07:00 100.2 F H 06/26/18 06:36 91 111/63 06/26/18 06:00 20 06/26/18 04:00 99.2 F 19 Weight Admit Weight 202 lb 3.2 oz Weight 213 lb 6.519 oz Most Recent Monitor Data Heart Rate from ECG 82 NIBP 105/57 NIBP BP-Mean 84 Respiration from ECG 21 SpO2 99 I&O: 06/25/18 06/26/18 06/27/18 06:59 06:59 06:59 Intake Total 243.8 3407.9 100 Output Total 565 1233 428 Balance -321.2 2174.9 -328 Result Diagrams: 06/26/18 03:20 06/26/18 03:20 Additional Labs: Accuchecks 06/26/18 06/26/18 06/26/18 12:26 09:15 00:29 POC Glucose 143 H 145 H 138 H 06/25/18 06/25/18 06/25/18 20:48 16:23 11:37 POC Glucose 137 H 129 H 158 H Phys Exam - Physical Examination Trached Left front-temp, orbital hematoma. trached Respiratory: no wheezing, no rales, no rhonchi Cardiovascular: RRR, no significant murmur Gastrointestinal: soft, non-tender, no distention Musculoskeletal: no edema, pulses present right sided ecchymosis, weakness due to CVA and Fall Deviation from normal: right elbow, hands, knee, abrasions, ecchymosis. right orbital ecchymosis Dx/Plan (1) Hemorrhagic cerebrovascular accident (CVA) Code(s): I61.9 - NONTRAUMATIC INTRACEREBRAL HEMORRHAGE, UNSPECIFIED Status: Acute Comment: neurosurg is priamary. trached. Will probably need peg tube. Started enteral tube feds. Supportive care. (2) Respiratory failure after trauma Code(s): J96.90 - RESPIRATORY FAILURE, UNSP, UNSP W HYPOXIA OR HYPERCAPNIA Status: Acute Comment: trached on a vent. (3) NSTEMI (non-ST elevated myocardial infarction) Code(s): I21.4 - NON-ST ELEVATION (NSTEMI) MYOCARDIAL INFARCTION Status: Acute Comment: likely due to demand. Cardio on board. Will monitor (4) Atrial fibrillation with RVR Code(s): I48.91 - UNSPECIFIED ATRIAL FIBRILLATION Status: Acute Comment: Patient on cardizem drip and on levophed--- agree with cardio that digoxin be given for rate control and levophed continued for pressure support until patient can be titrated of levophed. will follow up with cardio. (5) Rhabdomyolysis Code(s): M62.82 - RHABDOMYOLYSIS Status: Acute (6) Hypernatremia Code(s): E87.0 - HYPEROSMOLALITY AND HYPERNATREMIA Status: Acute Comment: monitor (7) Anemia due to acute blood loss Code(s): D62 - ACUTE POSTHEMORRHAGIC ANEMIA Status: Acute (8) Diabetes mellitus Code(s): E11.9 - TYPE 2 DIABETES MELLITUS WITHOUT COMPLICATIONS Status: Acute Comment: controlled. will continue current management. (9) Aspiration pneumonia Code(s): J69.0 - PNEUMONITIS DUE TO INHALATION OF FOOD AND VOMIT Status: Acute Comment: cefepime. will continue (10) Bacteremia Code(s): R78.81 - BACTEREMIA Status: Acute Comment: likely contaminant. Spoke with online content editor. will wait until final culture. (11) Shock circulatory Code(s): R57.9 - SHOCK, UNSPECIFIED Status: Acute Comment: Hypotensive therefore on pressors. Will continue to monitor and adjust pressors per protocol. - Plan * . see above Review of Systems - Medications/Allergies Allergies/Adverse Reactions: Allergies Allergy/AdvReac Type Severity Reaction Status Date / Time Tetanus Vaccines and Toxoid Allergy Hives Verified 06/25/18 02:50 [Tetanus Vaccines & Toxoid] Medications: Current Medications Acetaminophen (Tylenol) 650 mg PO Q4H PRN PRN Reason: Headache/Fever/Mild Pain (1-3) Last Admin: 06/26/18 09:46 Dose: 650 mg Al Hydroxide/Mg Hydroxide (Maalox) 30 ml PO Q6H PRN PRN Reason: Indigestion Lipase/Protease/Am[place] ([place] [id number]) 1 cap FS .PER PROTOCOL PRN PRN Reason: TUBE OCCLUSION PROTOCOL Atorvastatin Calcium (Lipitor) 40 mg PO [facility] Last Admin: 06/25/18 20:49 Dose: 40 mg Bisacodyl (Dulcolax) 10 mg MT DAILYPRN PRN PRN Reason: Constipation Dextrose/Water (Dextrose 50%) 25 gm SLOW IVP PRN PRN PRN Reason: Hypoglycemia Diphenhydramine HCl (Benadryl) 50 mg PO Q6H PRN PRN Reason: Itching or Insomnia Docusate Sodium (Colace) 100 mg PO BIDPRN PRN PRN Reason: Constipation Famotidine (Pepcid) 20 mg SLOW IVP DAILY [facility] Last Admin: 06/26/18 09:34 Dose: 20 mg Glucagon (Glucagon) 1 mg IM PRN PRN PRN Reason: Hypoglycemia Fentanyl Citrate 2,000 mcg/ (Sodium Chloride) 100 mls @ 0 mls/hr IV INF U[facility]ILA; Protocol Stop: 07/24/18 22:17 Sodium Chloride (Normal Saline 0.9%) 1,000 mls @ 75 mls/hr IV .[id number] [facility] Last Admin: 06/26/18 02:18 Dose: 1,000 mls Insulin Glargine 20 units/ (Miscellaneous Medication) 0.2 mls @ 0 mls/hr SC [facility] Last Admin: 06/25/18 21:09 Dose: Not Given Norepinephrine Bitartrate (Levophed) 250 mls @ 0 mls/hr IVPB INF PRN; Protocol PRN Reason: KEEP MAP AT 65 Last Admin: 06/25/18 20:50 Dose: 250 mls Fentanyl Citrate (Fentanyl Bolus) 250 mls @ 0 mls/hr IVPB PRN PRN PRN Reason: Breakthrough pain/agitation Stop: 07/25/18 01:56 Diltiazem HCl 125 mg/Miscellaneous Medication 1 each/ Sodium Chloride 125 mls @ 5 mls/hr IVPB INF URMILA; Protocol Last Admin: 06/26/18 01:58 Dose: 125 mls Dextrose/Water (D5w) 1,000 mls @ 0 mls/hr IV .Q0M PRN PRN Reason: Hypoglycemia Cefepime HCl 1 gm/ Sodium (Chloride) 100 mls @ 200 mls/hr IVPB Q12HR [facility] Last Admin: 06/26/18 09:33 Dose: 100 mls Insulin Human Lispro (Humalog) 0 units SC .MILD SLIDING SCALE PRN PRN Reason: Mild Correctional Scale Last Admin: 06/25/18 11:58 Dose: 2 unit Iron/Minerals/Multivitamins (Theragran M) 1 tab PO DAILY [facility] Last Admin: 06/26/18 09:34 Dose: 1 tab Labetalol HCl (Normodyne) 10 mg SLOW IVP Q15M PRN PRN Reason: SBP > 160 Lorazepam (Ativan) 2 mg SLOW IVP Q1H PRN PRN Reason: Breakthrough agitation Stop: 07/25/18 01:56 Magnesium Hydroxide (Milk Of Magnesium) 30 ml PO BIDPRN PRN PRN Reason: Constipation Morphine Sulfate (Morphine) 2 mg SLOW IVP Q1H PRN PRN Reason: Moderate Pain (4-6) Morphine Sulfate (Morphine) 4 mg SLOW IVP Q1H PRN PRN Reason: Severe Pain (7-10) Discontinue Previous Narcotic Pain Medications And Benzodiazepines 1 each FS .ONE [facility] Stop: 07/25/18 01:56 Ondansetron HCl (Zofran) 4 mg IVP Q6H PRN PRN Reason: Nausea/Vomiting Promethazine HCl (Phenergan) 25 mg PO Q4H PRN PRN Reason: Nausea/Vomiting Promethazine HCl (Phenergan) 25 mg IM Q4H PRN PRN Reason: Nausea/Vomiting Propofol (Diprivan) 1,000 mg IV INF PRN; Protocol PRN Reason: TO ACHIEVE GOAL RASS Stop: 07/25/18 01:56 Propofol (Diprivan Bolus) 20 mg IV Q5MIN PRN PRN Reason: BREAKTHROUGH AGITATION Stop: 07/25/18 01:56 Sodium Bicarbonate (Bicarbonate, Sodium) 650 mg PER TUBE .PER PROTOCOL PRN PRN Reason: ENTERAL TUBE OCCLUSION Sodium Chloride (Flush - Normal Saline) 10 ml IVF Q12HR [facility] Last Admin: 06/25/18 21:04 Dose: 10 ml Sodium Chloride (Flush - Normal Saline) 10 ml IVF PRN PRN PRN Reason: Saline Flush Zolpidem Tartrate (Ambien) 5 mg PO HSPRN PRN PRN Reason: Insomnia
--- NOTE | 2018-06-26 14:57 | PRG ---
DATE OF SERVICE: 06/26/2018 This is a 15 minute subsequent visit note which 15 minutes were spent in review the imaging record, e valuation, examination of patient, and formulation of a plan. Greater than 50% of the time was spent in counseling Chace Farfan. I have seen and examined Mr. Farfan this morning. He weakly opens h is eyes to voice and spontaneously moves the left side and briskly wiggles his toes in the left lower extremity. He is hemiplegic in the right. He remains intubated. He is on diltiazem and and also cefepime. His prognosis remains quite guarded and I reviewed his imaging. I have updated his s on. There is no role for neurosurgical intervention here. However, I have let his son know that the location of his hemorrhage is certainly fits his neurologic picture, although he has multiple medica l issues that we are dealing with at this point left thalamic hemorrhage.
[2018-06-26] MEDS ORDERED: Furosemide 20 MG/2 ML VIAL SLOW IVP SCH (15:30)
[2018-06-26] MEDS ORDERED: Digoxin 0.5 MG/2 ML AMP SLOW IVP SCH (16:15)
[2018-06-26] MEDS: HumaLOG 300 UNITS/3 ML VIAL SC PRN (16:31)
[2018-06-26] MEDS: Atorvastatin Calcium 40 MG TAB PO SCH (20:20)
[2018-06-26] MEDS: Insulin Glargine 20 UNITS in Pre-Filled Syringe 1 EACH SC SCH (20:20)
[2018-06-27] MEDS: HumaLOG 300 UNITS/3 ML VIAL SC PRN ×5 (00:18→20:23)
[2018-06-27] MEDS: Acetaminophen 325 MG TAB PO PRN (04:47)
[2018-06-27] MEDS: Sodium Chloride 0.9% 1,000 ML IV SCH ×2 (05:02→12:44)
[2018-06-27 05:09] LABS: ALT (SGPT) 60 U/L (8-55); AST (SGOT) 83 U/L (5-34); Albumin 3.2 g/dL (3.4-4.8); Alkaline Phosphatase 155 U/L (40-150); Anion Gap 9 mmol/L (10-20); BUN (Urea Nitrogen) 22 mg/dL (8.4-25.7); Bilirubin, Total 1.2 mg/dL (0.2-1.2); CK (CPK) 745 U/L (30-200); Calc. Creatinine Clearance 118 mL/min (70-130); Calcium 8.8 mg/dL (7.8-10.44); Carbon Dioxide 30 mmol/L (23-31); Chloride 113 mmol/L (98-107); Estimated GFR-MDRD Greater than 90; Globulin 3.1 g/dL (2.4-3.5); Glucose 187 mg/dL (83-110); Potassium 3.6 mmol/L (3.5-5.1); Protein, Total 6.3 g/dL (5.8-8.1); Sodium 148 mmol/L (136-145)
[2018-06-27 05:56] LABS: Band 7 % (5-11); Hemoglobin 12.4 g/dL (14.0-18.0); Hypochromia SLIGHT = 6-15 cells (100X) (0-5/hpf); Lymphocytes 3 % (21-51); MDiff Complete? YES; Macrocytosis SLIGHT = 6-15 cells (100X) (0-5/hpf); Mean Corpuscular HGB CONC 34.5 g/dL (32.0-36.0); Mean Corpuscular Hemoglobin 38.2 pg (27.0-31.0); Mean Platelet Volume 8.1 fL (7.4-10.4); Monocytes 9 % (0-10); Neutrophil 81 % (42-75); PLT Morphology Comment Appears Decreased; Platelet Count 87 thou/uL (130-400); Red Blood Cell (RBC) Count 3.24 mill/uL (4.70-6.10); White Blood Cell (WBC) Count 7.3 thou/uL (4.8-10.8)
[2018-06-27 06:58] LABS: CO2 Tension 37.1 mmHg (35.0-45.0); O2 Tension (PaO2) 117.7 mmHg (> 70.0); pH, Arterial 7.47 (7.35-7.45)
[2018-06-27 06:59] LABS: Actual Bicarbonate (HCO3a) 26.1 mEq/L (22-28); Base Excess (BEa) 2.4 mEq/L (-2.0 to +3.0); Calcium, Ionized 1.2 mmol/L (1.12-1.30); Potassium - ABG Lab 3.3 mmol/L (3.70-5.30); Puncture Site LRA
[2018-06-27 07:00] LABS: ALV-art Gradient 121.125 (0-20)
[2018-06-27] MEDS: Cefepime 1 GM in Sodium Chloride 0.9% 100 ML IVPB SCH ×2 (09:03→20:22)
[2018-06-27] MEDS: Digoxin 0.5 MG/2 ML AMP SLOW IVP SCH (09:03)
[2018-06-27] MEDS: Famotidine/PF 20 mg/2ml Vial SLOW IVP SCH (09:04)
--- NOTE | 2018-06-27 09:24 | RAD ---
PORTABLE CHEST: INDICATION: CCU patient on ventilator with daily followup. COMPARISON: 06/26/18. FINDINGS: Cardiomegaly. Mild vascular congestion. Hazy infiltrate and/or edema in the right lower lung. Smal l effusions. Not significantly changed from yesterday. POS: [facility]
[2018-06-27] MEDS: Multivits W-Minerals Liquid 15mL UDCUP PO SCH (10:55)
--- NOTE | 2018-06-27 11:22 | PRG ---
DATE OF SERVICE: 06/27/2018 SUBJECTIVE: Adolph this morning remains intubated on the vent. Still encephalopathic. OBJECTIVE: VITAL SIGNS: Blood pressure 133/82, temperature is 98, pulse 80, sats 100%. His I's and O's have been 3105 in, 229 out. NEUROLOGIC: Neurologically, opens his eyes. He is not tracking. CHEST: Chest reveals decreased breath sounds, no wheezing. CARDIAC: Normal S1, S2, no gallops. ABDOMEN: Soft. LABORATORY DATA: White count 10,000, H&H 12 and 35, platelet count is 87. His pO2 117, pCO2 36_ rate of 10, 40%. Electrolytes are normal. IMPRESSION: Staph aureus on his bronch washings, not MRSA, sensitive to the present antibiotic. Respiratory failure, aspiration, Staphylococcal tracheobronchitis, pneumonia, not methicillin-resistant Staphylococcus aureus. Continue nutrition, PT, and supportive care. Slow weaning. One-half hour critical care time. We will follow. ANTHONY
--- NOTE | 2018-06-27 11:26 | PRG ---
DATE OF SERVICE: 06/27/2018 This is a 15 minutes subsequent visit note in which 15 minutes were spent in review the imaging, yar[address] rd, evaluation and examination of patient, and formulation of a plan. Greater than 50% of the time w as spent in counseling on Mr. Chace Farfan, date of 1945. SUBJECTIVE: Mr. Farfan eyes open spontaneously this morning. He intermittently follows comm ands in the left upper extremity and left lower extremity. He is hemiplegic in the right upper and r ight lower extremity. He is on cefepime and I should note his respiratory culture along with blood c ulture demonstrated both Staphylococcus aureus and Staphylococcus epidermidis, which may be a contami nant. His white blood cell count has improved significantly over the last 3 days from 18.5-7.3. He did have a fever last night of 100.6 at 9:00 p.m., but this morning is normothermic. His prognosis r emains quite guarded.
[2018-06-27] MEDS: Acetaminophen 650 MG/20.3 ML UDCUP PO PRN ×2 (12:41→23:53)
[2018-06-27] MEDS: Insulin Glargine 20 UNITS in Pre-Filled Syringe 1 EACH SC SCH (20:22)
[2018-06-27] MEDS: Atorvastatin Calcium 40 MG TAB PO SCH (20:22)
[2018-06-27] MEDS: Multivitamin W/ Minerals 1 TAB PO SCH (21:34)
--- NOTE | 2018-06-27 23:06 | PDOC.PN ---
- Subjective Encounter Start Date: 06/27/18 Encounter Start Time: 09:50 Patient seen and examined for med mngt. On [facility] Vent. No overnight events - Objective Resuscitation Status: Resuscitation Status DNR:Do Not Resuscitate MAR Reviewed: Yes Vital Signs & Weight: Vital Signs (12 hours) Temp Pulse Pulse Pulse Resp BP BP 06/27/18 22:00 28 H 06/27/18 20:00 29 H 06/27/18 19:00 100.7 F H 06/27/18 18:31 95 06/27/18 18:00 100.8 F H 23 H 06/27/18 16:00 99.8 F H 24 H 06/27/18 14:17 94 130/66 06/27/18 14:00 22 H 06/27/18 12:00 100.2 F H 28 H 06/27/18 11:27 89 93 133/74 BP Pulse Ox Pulse Ox Pulse Ox 06/27/18 22:00 06/27/18 20:00 06/27/18 19:00 06/27/18 18:31 06/27/18 18:00 06/27/18 16:00 06/27/18 14:17 06/27/18 14:00 06/27/18 12:00 97 06/27/18 11:27 113/67 96 96 Weight Admit Weight 202 lb 3.2 oz Weight 214 lb 15.211 oz Most Recent Monitor Data Heart Rate from ECG 104 NIBP 125/67 NIBP BP-Mean 83 Respiration from ECG 26 SpO2 100 I&O: 06/26/18 06/27/18 06/28/18 06:59 06:59 06:59 Intake Total 3407.9 3105 1257 Output Total 1233 2209 970 Balance 2174.9 896 287 Result Diagrams: 06/27/18 04:00 06/27/18 04:00 Additional Labs: Accuchecks 06/27/18 06/27/18 06/27/18 20:20 17:02 12:20 POC Glucose 173 H 160 H 206 H 06/27/18 06/27/18 06/27/18 09:36 04:39 00:12 POC Glucose 157 H 169 H 206 H EKG Reviewed by me: Yes (Tele SR) Phys Exam - Physical Examination Constitutional: NAD Respiratory: no wheezing Coarse BS B/L Cardiovascular: RRR, no rub Gastrointestinal: soft, non-tender, positive bowel sounds Dx/Plan - Plan DVT proph w/SCDs IMPRESSION: 1. Acute hypoxic resp failure 2. Sepsis with acute organ dysfuntion due to Aspiration Pneumonia 3. CHRIS with rhabdomyolysis 4. Lactic acidosis 5. DM2 6. Dehydration/Abn LFTs due to Sepsis/ Afib with RVR/Thrombocytopenia 7. Other issues per previous notes PLAN: Cont Cefepime Cont Digoxin for Afib Cont Lantus 20 units HS Cont supportive care Review of Systems - Review of Systems Other: Cannot obtain due to current mentation. - Medications/Allergies Allergies/Adverse Reactions: Allergies Allergy/AdvReac Type Severity Reaction Status Date / Time Tetanus Vaccines and Toxoid Allergy Hives Verified 06/25/18 02:50 [Tetanus Vaccines & Toxoid] Medications: Current Medications Acetaminophen (Tylenol Elixir) 650 mg PO Q4H PRN PRN Reason: Headache/Fever/Mild Pain (1-3) Last Admin: 06/27/18 12:41 Dose: 650 mg Al Hydroxide/Mg Hydroxide (Maalox) 30 ml PO Q6H PRN PRN Reason: Indigestion Lipase/Protease/Amylase (Sarah Fitzpatrick [id number]) 1 cap FS .PER PROTOCOL PRN PRN Reason: TUBE OCCLUSION PROTOCOL Atorvastatin Calcium (Lipitor) 40 mg PO HS [facility] Last Admin: 06/27/18 20:22 Dose: 40 mg Bisacodyl (Dulcolax) 10 mg NM DAILYPRN PRN PRN Reason: Constipation Dextrose/Water (Dextrose 50%) 25 gm SLOW IVP PRN PRN PRN Reason: Hypoglycemia Digoxin (Lanoxin) 0.25 mg SLOW IVP DAILY [facility] Last Admin: 06/27/18 09:03 Dose: 0.25 mg Diphenhydramine HCl (Benadryl) 50 mg PO Q6H PRN PRN Reason: Itching or Insomnia Docusate Sodium (Colace) 100 mg PO BIDPRN PRN PRN Reason: Constipation Famotidine (Pepcid) 20 mg SLOW IVP DAILY [facility] Last Admin: 06/27/18 09:04 Dose: 20 mg Glucagon (Glucagon) 1 mg IM PRN PRN PRN Reason: Hypoglycemia Fentanyl Citrate 2,000 mcg/ (Sodium Chloride) 100 mls @ 0 mls/hr IV INF [facility]; Protocol Stop: 07/24/18 22:17 Sodium Chloride (Normal Saline 0.9%) 1,000 mls @ 37.5 mls/hr IV .Q24H [facility] Last Admin: 06/27/18 12:44 Dose: 1,000 mls Insulin Glargine 20 units/ (Miscellaneous Medication) 0.2 mls @ 0 mls/hr SC HS [facility] Last Admin: 06/27/18 20:22 Dose: 0.2 mls Norepinephrine Bitartrate (Levophed) 250 mls @ 0 mls/hr IVPB INF PRN; Protocol PRN Reason: KEEP MAP AT 65 Last Admin: 06/25/18 20:50 Dose: 250 mls Fentanyl Citrate (Fentanyl Bolus) 250 mls @ 0 mls/hr IVPB PRN PRN PRN Reason: Breakthrough pain/agitation Stop: 07/25/18 01:56 Diltiazem HCl 125 mg/Miscellaneous Medication 1 each/ Sodium Chloride 125 mls @ 5 mls/hr IVPB INF [facility]; Protocol Last Admin: 06/26/18 13:49 Dose: 125 mls Dextrose/Water (D5w) 1,000 mls @ 0 mls/hr IV .Q0M PRN PRN Reason: Hypoglycemia Cefepime HCl 1 gm/ Sodium (Chloride) 100 mls @ 200 mls/hr IVPB Q12HR [facility] Last Admin: 06/27/18 20:22 Dose: 100 mls Insulin Human Lispro (Humalog) 0 units SC .MILD SLIDING SCALE PRN PRN Reason: Mild Correctional Scale Last Admin: 06/27/18 20:23 Dose: 2 unit Iron/Minerals/Multivitamins (Certa Mohini Liquid) 15 ml PO QAM [facility] Last Admin: 06/27/18 10:55 Dose: 15 ml Labetalol HCl (Normodyne) 10 mg SLOW IVP Q15M PRN PRN Reason: SBP > 160 Lorazepam (Ativan) 2 mg SLOW IVP Q1H PRN PRN Reason: Breakthrough agitation Stop: 07/25/18 01:56 Magnesium Hydroxide (Milk Of Magnesium) 30 ml PO BIDPRN PRN PRN Reason: Constipation Morphine Sulfate (Morphine) 2 mg SLOW IVP Q1H PRN PRN Reason: Moderate Pain (4-6) Last Admin: 06/27/18 12:49 Dose: 2 mg Morphine Sulfate (Morphine) 4 mg SLOW IVP Q1H PRN PRN Reason: Severe Pain (7-10) Discontinue Previous Narcotic Pain Medications And Benzodiazepines 1 each FS .ONE [facility] Stop: 07/25/18 01:56 Ondansetron HCl (Zofran) 4 mg IVP Q6H PRN PRN Reason: Nausea/Vomiting Promethazine HCl (Phenergan) 25 mg PO Q4H PRN PRN Reason: Nausea/Vomiting Promethazine HCl (Phenergan) 25 mg IM Q4H PRN PRN Reason: Nausea/Vomiting Propofol (Diprivan) 1,000 mg IV INF PRN; Protocol PRN Reason: TO ACHIEVE GOAL RASS Stop: 07/25/18 01:56 Propofol (Diprivan Bolus) 20 mg IV Q5MIN PRN PRN Reason: BREAKTHROUGH AGITATION Stop: 07/25/18 01:56 Sodium Bicarbonate (Bicarbonate, Sodium) 650 mg PER TUBE .PER PROTOCOL PRN PRN Reason: ENTERAL TUBE OCCLUSION Sodium Chloride (Flush - Normal Saline) 10 ml IVF Q12HR [facility] Last Admin: 06/27/18 20:24 Dose: 10 ml Sodium Chloride (Flush - Normal Saline) 10 ml IVF PRN PRN PRN Reason: Saline Flush Last Admin: 06/26/18 16:30 Dose: 10 ml Zolpidem Tartrate (Ambien) 5 mg PO HSPRN PRN PRN Reason: Insomnia
[2018-06-28] MEDS: HumaLOG 300 UNITS/3 ML VIAL SC PRN ×6 (00:48→21:00)
[2018-06-28 05:39] LABS: Digoxin 0.35 ng/mL (0.8-2.0)
[2018-06-28 05:41] LABS: Anion Gap 11 mmol/L (10-20); BUN (Urea Nitrogen) 18 mg/dL (8.4-25.7); CK (CPK) 419 U/L (30-200); Calc. Creatinine Clearance 129 mL/min (70-130); Calcium 9.2 mg/dL (7.8-10.44); Carbon Dioxide 28 mmol/L (23-31); Chloride 113 mmol/L (98-107); Estimated GFR-MDRD Greater than 90; Glucose 166 mg/dL (83-110); Magnesium 1.7 mg/dL (1.6-2.6); Potassium 3.7 mmol/L (3.5-5.1); Sodium 148 mmol/L (136-145)
[2018-06-28 06:14] LABS: Hemoglobin 12.5 g/dL (14.0-18.0); Mean Corpuscular HGB CONC 34.9 g/dL (32.0-36.0); Mean Corpuscular Hemoglobin 38.9 pg (27.0-31.0); Mean Platelet Volume 7.9 fL (7.4-10.4); Platelet Count 86 thou/uL (130-400); RBC Distribution Width 14.3 % (11.5-14.5); Red Blood Cell (RBC) Count 3.22 mill/uL (4.70-6.10); White Blood Cell (WBC) Count 6.2 thou/uL (4.8-10.8)
[2018-06-28 06:15] LABS: Band 1 % (5-11); Hypochromia SLIGHT = 6-15 cells (100X) (0-5/hpf); Lymphocytes 11 % (21-51); MDiff Complete? YES; Macrocytosis SLIGHT = 6-15 cells (100X) (0-5/hpf); Monocytes 5 % (0-10); Neutrophil 83 % (42-75); PLT Morphology Comment Appears Decreased
[2018-06-28 06:57] LABS: Actual Bicarbonate (HCO3a) 28.9 mEq/L (22-28); Base Excess (BEa) 5.4 mEq/L (-2.0 to +3.0); CO2 Tension 38.3 mmHg (35.0-45.0); Hemoglobin (Hb) 12.7 g/dL (14.0-18.0); O2 Tension (PaO2) 61.3 mmHg (> 70.0)
[2018-06-28 06:58] LABS: ALV-art Gradient 103.225 (0-20); Calcium, Ionized 1.2 mmol/L (1.12-1.30); Carboxyhemoglobin (COHb) 0.7 gm% (0.0-3.0); Potassium - ABG Lab 3.7 mmol/L (3.70-5.30); Puncture Site RR
--- NOTE | 2018-06-28 07:07 | PRG ---
DATE OF SERVICE: 06/28/2018 I saw Mr. Farfan in his hospital room this morning. He is a gentleman who was admitted on of last week after being found down at home. Given the scan findings he has most likely suffered a spontaneous intracerebral hemorrhage and due to that hemorrhage had a fall and was unable to move him self for days before being found. He has some rhabdomyolysis on admission, but his laboratory values are improving. Mr. Farfan remains on the ventilator. His vital signs look stable to me. As I entered the room morning he opens his eyes to voice. He seems to nod appropriately. He occasionally will follow c ommands. I asked him to move his thumb, he will start moving his hands and fingers until finally he will lift his thumb. I asked him to wiggle his toes and he moves his entire leg and then eventually with enough waiting he starts to wiggle the toes. As he anticipates, what I want more so than having normal language function. The right side is not moving. As mentioned previously, Mr. Farfan likely suffered a spontaneous intracerebral hemorrhage. This i s his second stroke to involve the right side of his body. The first was ischemic, this one being he morrhagic. He will need inpatient rehabilitation. In the coming days the primary issue will be extu bation. If he is not ready for extubation then we will approach the family with options to discuss. Tracheostomy and gastrostomy were already mentioned to them and they have been thinking over the kend about how they would like to proceed. In the meantime, we will make sure he does not experience significant hyponatremia, keep his IV fluids isotonic and will eventually look into inpatient rehabi litation placement.
[2018-06-28] MEDS: Multivits W-Minerals Liquid 15mL UDCUP PO SCH ×3 (09:00→09:06)
[2018-06-28] MEDS: Cefepime 1 GM in Sodium Chloride 0.9% 100 ML IVPB SCH ×2 (09:04→21:04)
[2018-06-28] MEDS: Famotidine 20 MG TAB PER TUBE SCH (09:07)
[2018-06-28] MEDS: Digoxin 0.5 MG/2 ML AMP SLOW IVP SCH (09:07)
--- NOTE | 2018-06-28 09:16 | RAD ---
AP VIEW OF THE CHEST: INDICATION: History of intubation. COMPARISON: Prior exam dated 06/27/18. FINDINGS: ET tube and gastric catheter are unchanged. Cardiomegaly and pulmonary vascular congestion are simil ar-appearing. Perihilar central edema is similar-appearing. Small bilateral pleural effusions persi st. IMPRESSION: Stable exam. POS: [facility]
[2018-06-28] MEDS: Morphine 4 MG/ML VIAL SLOW IVP PRN (09:55)
--- NOTE | 2018-06-28 10:38 | PRG ---
DATE OF SERVICE: 06/28/2018 SUBJECTIVE: Mr. Farfan remains in the ICU, intubated on the vent. We still have not seen the family yet. OBJECTIVE: VITAL SIGNS: Since the last 48 hours, his pulse is 96, blood pressure 156/72, his respiratory rate i s about 30, his temperature is 101.3. NEUROLOGICAL: Pupils are equal, but encephalopathic. CHEST: Bilateral rhonchi. CARDIAC: Sinus tachycardia. ABDOMEN: Soft. IMAGING DATA: His chest x-ray shows right-sided infiltrate. LABORATORY DATA: PO2 of 61, pCO2 of on 30% and PEEP of 5. White count 6,000, hemoglobin and h ematocrit 12 and 35, platelet count 86,000. His sputum is growing Staph aureus, which is sensitive t o the present antibiotic, which is Maxipime. IMPRESSION: 1. Status post subarachnoid intracerebral hemorrhage. 2. Thrombocytopenia. 3. Aspiration pneumonia, Staphylococcus. 4. Supraventricular tachycardia. PLAN: Patient is not weanable at this stage. It is unclear what the family wants to do. We are goi ng to get DNR. In the meantime, supportive care and PT. [id number] critical care time.
[2018-06-28] MEDS: Sodium Chloride 0.9% 1,000 ML IV SCH (10:39)
[2018-06-28] MEDS ORDERED: Digoxin 0.5 MG/2 ML AMP SLOW IVP SCH (12:45)
[2018-06-28 13:51] VITALS: BMI 29.0
[2018-06-28] MEDS: Acetaminophen 650 MG/20.3 ML UDCUP PO PRN (17:07)
[2018-06-28] MEDS: Insulin Glargine 20 UNITS in Pre-Filled Syringe 1 EACH SC SCH (21:01)
[2018-06-28] MEDS: Atorvastatin Calcium 40 MG TAB PO SCH (21:08)
--- NOTE | 2018-06-28 22:43 | PDOC.PN ---
- Subjective Encounter Start Date: 06/28/18 Encounter Start Time: 12:30 Patient seen and examined for med mngt. No new complaints. No overnight events - Objective Resuscitation Status: Resuscitation Status DNR:Do Not Resuscitate MAR Reviewed: Yes Vital Signs & Weight: Vital Signs (12 hours) Temp Pulse Resp BP 06/28/18 22:00 26 H 06/28/18 20:00 100.4 F H 22 H 06/28/18 18:53 85 06/28/18 18:00 99.9 F H 21 H 06/28/18 17:08 107 H 129/69 06/28/18 16:00 101.4 F H 36 H 06/28/18 15:06 107 H 129/69 06/28/18 14:00 34 H 06/28/18 13:27 89 168/83 H 06/28/18 13:14 109 H 06/28/18 13:00 100.1 F H Weight Admit Weight 202 lb 3.2 oz Weight 214 lb 4.629 oz Most Recent Monitor Data Heart Rate from ECG 73 NIBP 127/65 NIBP BP-Mean 74 Respiration from ECG 22 SpO2 99 I&O: 06/27/18 06/28/18 06/29/18 06:59 06:59 06:59 Intake Total 3105 2333 1743 Output Total 2209 1580 1550 Balance 896 753 193 Result Diagrams: 06/29/18 05:03 06/29/18 05:03 Additional Labs: Accuchecks 06/28/18 06/28/18 06/28/18 20:59 18:16 13:07 POC Glucose 156 H 177 H 151 H 06/28/18 06/28/18 09:53 00:47 POC Glucose 160 H 163 H EKG Reviewed by me: Yes (Tele SR) Phys Exam - Physical Examination Constitutional: NAD On Vent Respiratory: no wheezing Coarse BS B/L Cardiovascular: RRR, no rub Gastrointestinal: soft, positive bowel sounds Dx/Plan - Plan DVT proph w/SCDs IMPRESSION: 1. Acute hypoxic resp failure - on Mech Vent 2. Sepsis with acute organ dysfunction due to Aspiration Pneumonia - on Cefepime 3. CHRIS with rhabdomyolysis - improving 4. Lactic acidosis - resolved 5. DM2 - on Lantus/sliding scale 6. Dehydration/Abn LFTs due to Sepsis/ Afib with RVR/Thrombocytopenia / HLD 7. Other issues per previous notes PLAN: Cont supportive care Cont Atbx/Digoxin/Lantus and sliding scale AM labs Review of Systems - Review of Systems Other: Cannot obtain due to current clinical condition. - Medications/Allergies Allergies/Adverse Reactions: Allergies Allergy/AdvReac Type Severity Reaction Status Date / Time Tetanus Vaccines and Toxoid Allergy Hives Verified 06/25/18 02:50 [Tetanus Vaccines & Toxoid] Medications: Current Medications Acetaminophen (Tylenol Elixir) 650 mg PO Q4H PRN PRN Reason: Headache/Fever/Mild Pain (1-3) Last Admin: 06/28/18 17:07 Dose: 650 mg Al Hydroxide/Mg Hydroxide (Maalox) 30 ml PO Q6H PRN PRN Reason: Indigestion Lipase/Protease/Amylase (Sarah Fitzpatrick [id number]) 1 cap FS .PER PROTOCOL PRN PRN Reason: TUBE OCCLUSION PROTOCOL Atorvastatin Calcium (Lipitor) 40 mg PO HS [facility] Last Admin: 06/28/18 21:08 Dose: 40 mg Bisacodyl (Dulcolax) 10 mg OR DAILYPRN PRN PRN Reason: Constipation Dextrose/Water (Dextrose 50%) 25 gm SLOW IVP PRN PRN PRN Reason: Hypoglycemia Digoxin (Lanoxin) 0.25 mg PER TUBE DAILY [facility] Diphenhydramine HCl (Benadryl) 50 mg PO Q6H PRN PRN Reason: Itching or Insomnia Docusate Sodium (Colace) 100 mg PO BIDPRN PRN PRN Reason: Constipation Famotidine (Pepcid) 20 mg PER TUBE DAILY [facility] Last Admin: 06/28/18 09:07 Dose: 20 mg Glucagon (Glucagon) 1 mg IM PRN PRN PRN Reason: Hypoglycemia Fentanyl Citrate 2,000 mcg/ (Sodium Chloride) 100 mls @ 0 mls/hr IV INF [facility]; Protocol Stop: 07/24/18 22:17 Sodium Chloride (Normal Saline 0.9%) 1,000 mls @ 50 mls/hr IV .Q20H [facility] Last Admin: 06/28/18 10:39 Dose: 1,000 mls Insulin Glargine 20 units/ (Miscellaneous Medication) 0.2 mls @ 0 mls/hr SC HS [facility] Last Admin: 06/28/18 21:01 Dose: 0.2 mls Norepinephrine Bitartrate (Levophed) 250 mls @ 0 mls/hr IVPB INF PRN; Protocol PRN Reason: KEEP MAP AT 65 Last Admin: 06/25/18 20:50 Dose: 250 mls Fentanyl Citrate (Fentanyl Bolus) 250 mls @ 0 mls/hr IVPB PRN PRN PRN Reason: Breakthrough pain/agitation Stop: 07/25/18 01:56 Diltiazem HCl 125 mg/Miscellaneous Medication 1 each/ Sodium Chloride 125 mls @ 5 mls/hr IVPB INF [facility]; Protocol Last Admin: 06/26/18 13:49 Dose: 125 mls Dextrose/Water (D5w) 1,000 mls @ 0 mls/hr IV .Q0M PRN PRN Reason: Hypoglycemia Cefepime HCl 1 gm/ Sodium (Chloride) 100 mls @ 200 mls/hr IVPB Q12HR [facility] Last Admin: 06/28/18 21:04 Dose: 100 mls Insulin Human Lispro (Humalog) 0 units SC .MILD SLIDING SCALE PRN PRN Reason: Mild Correctional Scale Last Admin: 06/28/18 21:00 Dose: 2 unit Iron/Minerals/Multivitamins (Certa Mohini Liquid) 15 ml PO QAM [facility] Last Admin: 06/28/18 09:06 Dose: 15 ml Labetalol HCl (Normodyne) 10 mg SLOW IVP Q15M PRN PRN Reason: SBP > 160 Last Admin: 06/28/18 17:08 Dose: 10 mg Lorazepam (Ativan) 2 mg SLOW IVP Q1H PRN PRN Reason: Breakthrough agitation Stop: 07/25/18 01:56 Magnesium Hydroxide (Milk Of Magnesium) 30 ml PO BIDPRN PRN PRN Reason: Constipation Morphine Sulfate (Morphine) 2 mg SLOW IVP Q1H PRN PRN Reason: Moderate Pain (4-6) Last Admin: 06/27/18 12:49 Dose: 2 mg Morphine Sulfate (Morphine) 4 mg SLOW IVP Q1H PRN PRN Reason: Severe Pain (7-10) Last Admin: 06/28/18 09:55 Dose: 4 mg Discontinue Previous Narcotic Pain Medications And Benzodiazepines 1 each FS .ONE [facility] Stop: 07/25/18 01:56 Ondansetron HCl (Zofran) 4 mg IVP Q6H PRN PRN Reason: Nausea/Vomiting Promethazine HCl (Phenergan) 25 mg PO Q4H PRN PRN Reason: Nausea/Vomiting Promethazine HCl (Phenergan) 25 mg IM Q4H PRN PRN Reason: Nausea/Vomiting Propofol (Diprivan) 1,000 mg IV INF PRN; Protocol PRN Reason: TO ACHIEVE GOAL RASS Stop: 07/25/18 01:56 Propofol (Diprivan Bolus) 20 mg IV Q5MIN PRN PRN Reason: BREAKTHROUGH AGITATION Stop: 07/25/18 01:56 Sodium Bicarbonate (Bicarbonate, Sodium) 650 mg PER TUBE .PER PROTOCOL PRN PRN Reason: ENTERAL TUBE OCCLUSION Sodium Chloride (Flush - Normal Saline) 10 ml IVF Q12HR [facility] Last Admin: 06/28/18 21:08 Dose: 10 ml Sodium Chloride (Flush - Normal Saline) 10 ml IVF PRN PRN PRN Reason: Saline Flush Last Admin: 06/26/18 16:30 Dose: 10 ml Zolpidem Tartrate (Ambien) 5 mg PO HSPRN PRN PRN Reason: Insomnia
[2018-06-29] MEDS: Acetaminophen 650 MG/20.3 ML UDCUP PO PRN (03:44)
[2018-06-29] MEDS: Morphine 4 MG/ML VIAL SLOW IVP PRN (03:45)
[2018-06-29] MEDS: Sodium Chloride 0.9% 1,000 ML IV SCH (05:42)
[2018-06-29 05:44] LABS: Anion Gap 14 mmol/L (10-20); BUN (Urea Nitrogen) 19 mg/dL (8.4-25.7); Calc. Creatinine Clearance 133 mL/min (70-130); Calcium 9.2 mg/dL (7.8-10.44); Carbon Dioxide 26 mmol/L (23-31); Chloride 108 mmol/L (98-107); Estimated GFR-MDRD Greater than 90; Glucose 218 mg/dL (83-110); Potassium 3.8 mmol/L (3.5-5.1); Sodium 144 mmol/L (136-145)
[2018-06-29 05:49] LABS: Hemoglobin 11.9 g/dL (14.0-18.0); Platelet Count 87 thou/uL (130-400)
[2018-06-29] MEDS: HumaLOG 300 UNITS/3 ML VIAL SC PRN (06:05)
--- NOTE | 2018-06-29 06:58 | PRG ---
DATE OF SERVICE: 06/29/2018 Mr. Farfan is starting his 6th hospital with us. He came in last after being found down b y his family. He likely suffered a spontaneous intracerebral hemorrhage and then had difficulty mobi lizing and fell causing some traumatic subarachnoid blood. He has made a slow recovery as best as ca n be expected given the area of his intracerebral hemorrhage. He is plegic on the right. He is only intermittently following commands or mimicking. He is quite purposeful on the left. He opens his e yes to loud voice or stimulation. Mr. Farfan's family will need to decide whether they continue ventilatory and nutritional support v ia trach and PEG to give him more time to recover. If they decided against this he can be transferre d to hospice care.
[2018-06-29 07:04] LABS: Actual Bicarbonate (HCO3a) 28.8 mEq/L (22-28); Base Excess (BEa) 4.6 mEq/L (-2.0 to +3.0); CO2 Tension 41.2 mmHg (35.0-45.0); Carboxyhemoglobin (COHb) 1.2 gm% (0.0-3.0); Hemoglobin (Hb) 12.8 g/dL (14.0-18.0); O2 Tension (PaO2) 96.1 mmHg (> 70.0); pH, Arterial 7.46 (7.35-7.45)
[2018-06-29 07:05] LABS: Calcium, Ionized 1.2 mmol/L (1.12-1.30); Potassium - ABG Lab 3.8 mmol/L (3.70-5.30); Puncture Site RRA
[2018-06-29] MEDS ORDERED: DC Sedation Protocol FS ONE (08:31)
[2018-06-29] MEDS ORDERED: Digoxin 0.25 MG TAB PER TUBE SCH (09:00)
--- NOTE | 2018-06-29 09:08 | PRG ---
DATE OF SERVICE: 06/29/2018 This morning he is only moving his left side, not moving his right side, minimally responsive. PHYSICAL EXAMINATION: VITAL SIGNS: Pulse 80, blood pressure is 130/75, sats 100% on 30%, respiration 17. CHEST: Chest with extensive rhonchi and crackles. CARDIAC: Normal S1, S2, no gallops. ABDOMEN: Soft, no masses. LABORATORY DATA: White count is unremarkable. Electrolytes are normal. His blood gas; pO2 is 96, p CO2 41.46. IMPRESSION: 1. Respiratory failure. 2. Intracerebral and subarachnoid hemorrhage. 3. Staph pneumonia. PLAN: The patient's 3 sons are at the bedside. They do not want a trach and a PEG. They want comfo rt care. They want him to be extubated. I will continue Cardizem and antibiotic for the next 24 hours and then probably discontinue all medic ation depending upon his overall neurological status. Palliative Care has been consulted. One-half hour critical care time.
[2018-06-29] MEDS: Cefepime 1 GM in Sodium Chloride 0.9% 100 ML IVPB SCH ×2 (09:52→21:13)
[2018-06-29] MEDS: Famotidine 20 MG TAB PER TUBE SCH (09:53)
[2018-06-29] MEDS ORDERED: Scopolamine 1.5 mg/72 hour Patch TD SCH (10:30)
[2018-06-29] MEDS ORDERED: chlorproMAZINE HCl 50 MG/2 ML AMP SLOW IVP PRN (10:37)
[2018-06-29] MEDS: Morphine 10 MG/ML VIAL SLOW IVP PRN ×3 (11:43→21:13)
[2018-06-29] MEDS: Lorazepam 2 MG/ML VIAL SLOW IVP PRN (18:12)
[2018-06-29] MEDS: Atorvastatin Calcium 40 MG TAB PO SCH (20:40)
[2018-06-29] MEDS: Insulin Glargine 20 UNITS in Pre-Filled Syringe 1 EACH SC SCH (21:02)
--- NOTE | 2018-06-29 21:34 | PDOC.PN ---
- Subjective Encounter Start Date: 06/29/18 Encounter Start Time: 12:30 -: non-verbal Patient seen and examined for med mngt. Extubated today. No overnight events - Objective Resuscitation Status: Resuscitation Status DNR:Do Not Resuscitate MAR Reviewed: Yes Vital Signs & Weight: Vital Signs (12 hours) Temp Pulse Resp BP Pulse Ox 06/29/18 20:00 98.7 F 85 20 122/65 91 L 06/29/18 18:00 98.4 F 90 20 133/82 92 L 06/29/18 16:00 99.1 F 06/29/18 12:00 98.8 F 92 L 06/29/18 09:53 79 Weight Admit Weight 202 lb 3.2 oz Weight 214 lb 11.684 oz Most Recent Monitor Data Heart Rate from ECG 96 NIBP 156/87 NIBP BP-Mean 121 Respiration from ECG 26 SpO2 93 I&O: 06/28/18 06/29/18 06/30/18 06:59 06:59 06:59 Intake Total 2333 3177 652 Output Total 1580 2375 1110 Balance 753 802 -458 Result Diagrams: 06/29/18 05:03 06/29/18 05:03 Additional Labs: Accuchecks 06/29/18 06/29/18 06/29/18 12:21 06:04 00:06 POC Glucose 134 H 189 H 150 H Phys Exam - Physical Examination Constitutional: NAD Respiratory: no wheezing Coarse BS B/L Cardiovascular: RRR, no rub Gastrointestinal: soft, positive bowel sounds Dx/Plan - Plan DVT proph w/SCDs IMPRESSION: 1. Acute hypoxic resp failure - s/p Mech Vent 2. Sepsis with acute organ dysfunction due to Aspiration Pneumonia - on Cefepime 3. CHRIS with rhabdomyolysis - improving 4. Lactic acidosis - resolved 5. DM2 - on Lantus/sliding scale 6. Dehydration/Abn LFTs due to Sepsis/ Afib with RVR/Thrombocytopenia / HLD 7. Other issues per previous notes PLAN: Cont supportive care Cont Atbx/Digoxin/Lantus and sliding scale Review of Systems - Review of Systems Other: Cannot obtain due to current mentation. - Medications/Allergies Allergies/Adverse Reactions: Allergies Allergy/AdvReac Type Severity Reaction Status Date / Time Tetanus Vaccines and Toxoid Allergy Hives Verified 06/25/18 02:50 [Tetanus Vaccines & Toxoid] Medications: Current Medications Acetaminophen (Tylenol Elixir) 650 mg PO Q4H PRN PRN Reason: Headache/Fever/Mild Pain (1-3) Last Admin: 06/29/18 03:44 Dose: 650 mg Al Hydroxide/Mg Hydroxide (Maalox) 30 ml PO Q6H PRN PRN Reason: Indigestion Lipase/Protease/Am[place] ([place] [id number]) 1 cap FS .PER PROTOCOL PRN PRN Reason: TUBE OCCLUSION PROTOCOL Atorvastatin Calcium (Lipitor) 40 mg PO [facility] Last Admin: 06/29/18 20:40 Dose: Not Given Bisacodyl (Dulcolax) 10 mg CA DAILYPRN PRN PRN Reason: Constipation Chlorpromazine HCl (Thorazine) 25 mg SLOW IVP Q6H PRN PRN Reason: Hiccups Dextrose/Water (Dextrose 50%) 25 gm SLOW IVP PRN PRN PRN Reason: Hypoglycemia Digoxin (Lanoxin) 0.25 mg PER TUBE DAILY [facility] Last Admin: 06/29/18 09:53 Dose: Not Given Diphenhydramine HCl (Benadryl) 50 mg PO Q6H PRN PRN Reason: Itching or Insomnia Docusate Sodium (Colace) 100 mg PO BIDPRN PRN PRN Reason: Constipation Famotidine (Pepcid) 20 mg PER TUBE DAILY [facility] Last Admin: 06/29/18 09:53 Dose: Not Given Glucagon (Glucagon) 1 mg IM PRN PRN PRN Reason: Hypoglycemia Sodium Chloride (Normal Saline 0.9%) 1,000 mls @ 50 mls/hr IV .Q20H [facility] Last Admin: 06/29/18 05:42 Dose: 1,000 mls Insulin Glargine 20 units/ (Miscellaneous Medication) 0.2 mls @ 0 mls/hr SC [facility] Last Admin: 06/29/18 21:02 Dose: Not Given Norepinephrine Bitartrate (Levophed) 250 mls @ 0 mls/hr IVPB INF PRN; Protocol PRN Reason: KEEP MAP AT 65 Last Admin: 06/25/18 20:50 Dose: 250 mls Diltiazem HCl 125 mg/Miscellaneous Medication 1 each/ Sodium Chloride 125 mls @ 5 mls/hr IVPB INF [facility]; Protocol Last Admin: 06/26/18 13:49 Dose: 125 mls Dextrose/Water (D5w) 1,000 mls @ 0 mls/hr IV .Q0M PRN PRN Reason: Hypoglycemia Cefepime HCl 1 gm/ Sodium (Chloride) 100 mls @ 200 mls/hr IVPB Q12HR [facility] Last Admin: 06/29/18 09:52 Dose: 100 mls Insulin Human Lispro (Humalog) 0 units SC .MILD SLIDING SCALE PRN PRN Reason: Mild Correctional Scale Last Admin: 06/29/18 06:05 Dose: 2 unit Iron/Minerals/Multivitamins (Certa Mohini Liquid) 15 ml PO QAM [facility] Last Admin: 06/28/18 09:06 Dose: 15 ml Labetalol HCl (Normodyne) 10 mg SLOW IVP Q15M PRN PRN Reason: SBP > 160 Last Admin: 06/28/18 17:08 Dose: 10 mg Lorazepam (Ativan) 2 mg SLOW IVP Q2H PRN PRN Reason: Anxiety/Agitation Last Admin: 06/29/18 18:12 Dose: 2 mg Magnesium Hydroxide (Milk Of Magnesium) 30 ml PO BIDPRN PRN PRN Reason: Constipation Morphine Sulfate (Morphine) 2 mg SLOW IVP Q1H PRN PRN Reason: Moderate Pain (4-6) Last Admin: 06/27/18 12:49 Dose: 2 mg Morphine Sulfate (Morphine) 4 mg SLOW IVP Q1H PRN PRN Reason: Severe Pain (7-10) Last Admin: 06/29/18 03:45 Dose: 4 mg Morphine Sulfate (Morphine) 10 mg SLOW IVP Q2H PRN PRN Reason: Congestion Last Admin: 06/29/18 21:13 Dose: 10 mg Ondansetron HCl (Zofran) 4 mg IVP Q6H PRN PRN Reason: Nausea/Vomiting Promethazine HCl (Phenergan) 25 mg PO Q4H PRN PRN Reason: Nausea/Vomiting Promethazine HCl (Phenergan) 25 mg IM Q4H PRN PRN Reason: Nausea/Vomiting Scopolamine (Transderm Scop) 1.5 mg TD Q3D [facility] Last Admin: 06/29/18 11:42 Dose: 1.5 mg Sodium Bicarbonate (Bicarbonate, Sodium) 650 mg PER TUBE .PER PROTOCOL PRN PRN Reason: ENTERAL TUBE OCCLUSION Sodium Chloride (Flush - Normal Saline) 10 ml IVF Q12HR [facility] Last Admin: 06/29/18 21:12 Dose: 10 ml Sodium Chloride (Flush - Normal Saline) 10 ml IVF PRN PRN PRN Reason: Saline Flush Last Admin: 06/26/18 16:30 Dose: 10 ml Zolpidem Tartrate (Ambien) 5 mg PO HSPRN PRN PRN Reason: Insomnia
[2018-06-30] MEDS: Sodium Chloride 0.9% 1,000 ML IV SCH (03:36)
[2018-06-30] MEDS: Morphine 10 MG/ML VIAL SLOW IVP PRN (05:42)
[2018-06-30 06:56] VITALS: BP 118/69; TEMP 99.7
[2018-06-30] MEDS: Cefepime 1 GM in Sodium Chloride 0.9% 100 ML IVPB SCH (08:39)
--- NOTE | 2018-06-30 09:34 | PRG ---
DATE OF SERVICE: 06/30/2018 This morning he remains unresponsive. PHYSICAL EXAMINATION: VITAL SIGNS: Sats are 84, respirations 22, temperature 99, blood pressure 118/69. CHEST: Decreased breath sounds, no wheezing. CARDIAC: Normal S1-S2. No gallops. ABDOMEN: Soft. No masses. IMPRESSION: 1. Intracerebral hemorrhage. 2. Subarachnoid hemorrhage. 3. Respiratory failure. 4. Staph pneumonia. PLAN: Comfort care. Hospice is going to see the patient today. Discontinue all medication except m orphine and Ativan.
--- NOTE | 2018-06-30 10:17 | PRG ---
DATE OF SERVICE: 06/30/2018 I visited with Chace Farfan's family today. He has been transferred to comfort care in our [facility] hospice unit. He has been extubated. Mr. Farfan is breathing on his own. He does not follow co mmands. He moves his left, but not his right side. Tube feeds have been stopped, but IV fluid is ru nning. Mr. Farfan's family wonders how long he will continue in the hospital. I imagine this will be lalit ured in the order of days to a few weeks, but not months. Measures are in place for his comfort and our neurosurgery team will be available for ongoing consultation if needed. Family has decided again st aggressive treatment.
[2018-06-30] MEDS: Lorazepam 2 MG/ML VIAL SLOW IVP PRN (13:00)
[2018-06-30] MEDS: Morphine 4 MG/ML VIAL SLOW IVP PRN (13:00)
--- NOTE | 2018-06-30 13:07 | EKG ---
Test Reason : Blood Pressure : / mmHG Vent. Rate : 107 BPM Atrial Rate : 107 BPM P-R Int : 000 ms QRS Dur : 088 ms QT Int : 462 ms P-R-T Axes : 000 065 203 degrees QTc Int : 616 ms Accelerated Junctional rhythm Low voltage QRS Marked T wave abnormality, consider anterolateral ischemia Abnormal ECG Confirmed by HARJINDER FREITAS DO ([id number]), associate entertainment editor DUSTIN VILCHIS ([id number]) on 06/30/2018 1:07:17 PM Referred By: Confirmed By:HARJINDER FREITAS DO
== END 2018-06-30 13:15 | disposition hospice, inpatient (51) | DRG 870 ==
LOC: ERS 21:27 → CCU 23:00 → ONC 06-29 17:58
PROVIDERS: ADMIT Neurological Surgery; ATTEND Neurological Surgery
PROC: 5A1955Z Respiratory Ventilation, Greater than 96 Consecutive Hours (ICD-10-PCS; principal; 2018-06-24)
PROC: 0BH17EZ Insertion of Endotracheal Airway into Trachea, Via Natural or Artificial Opening (ICD-10-PCS; 2018-06-24)
DX: A41.01 Sepsis due to Methicillin susceptible Staphylococcus aureus (principal); J69.0 Pneumonitis due to inhalation of food and vomit; R57.1 Hypovolemic shock; J96.01 Acute respiratory failure with hypoxia; I21.4 Non-ST elevation (NSTEMI) myocardial infarction; I60.9 Nontraumatic subarachnoid hemorrhage, unspecified; S42.431A Displaced fracture (avulsion) of lateral epicondyle of right humerus, initial encounter for closed fracture; I62.9 Nontraumatic intracranial hemorrhage, unspecified; N39.0 Urinary tract infection, site not specified; N17.9 Acute kidney failure, unspecified; M62.82 Rhabdomyolysis; E87.2 Acidosis; D62 Acute posthemorrhagic anemia; E87.1 Hypo-osmolality and hyponatremia; I47.1 Supraventricular tachycardia; I48.91 Unspecified atrial fibrillation; E87.5 Hyperkalemia; Z86.73 Personal history of transient ischemic attack (TIA), and cerebral infarction without residual deficits; E11.9 Type 2 diabetes mellitus without complications; I10 Essential (primary) hypertension; J44.9 Chronic obstructive pulmonary disease, unspecified; Z87.891 Personal history of nicotine dependence; D69.6 Thrombocytopenia, unspecified; Z79.899 Other long term (current) drug therapy; Z88.8 Allergy status to other drugs, medicaments and biological substances; K74.60 Unspecified cirrhosis of liver; E78.5 Hyperlipidemia, unspecified
CPT/HCPCS: 36415; 36416; 36556; 51702; 70450; 70486; 71045; 71260; 72125; 74177; 80048; 80053; 80162; 80307; 81003; 81015; 82533; 82550; 82805; 83605; 83690; 83735; 84443; 84484; 85014; 85018; 85025; 85049; 85610; 85730; 86850; 86900; 86901; 87040; 87070; 87077; 87086; 87149; 87186; 87205; 89220; 93005; 93010; 93306; 94002; 94003; 96360; 96365; 96366; 96368; 96375; 96376; A4216; G0390; G8978-GP-CM; G8979-GP-CK; J0456; J0692; J0696; J1160; J1815; J1940; J2060; J2270; J3010; J3230; J3475; J3490; J7050; P9045; S0028